=== PATIENT | male | born 1945 | race Caucasian/White ===

== ENCOUNTER 2020-07-20 00:23 | Inpatient (IN) | payer OTHER, MEDICARE, SELFPAY ==
[2020-07-20] VITALS (18 sets, daily range): BP systolic 105–155; BP diastolic 66–87; PULSE 70–120; RESP 14–22; TEMP 36.6–37.3; O2SAT 92–98; BMI 29.6
--- NOTE | 2020-07-20 00:28 | XRR_ITS ---
PROCEDURE INFORMATION: Exam: XR Chest, 1 View Exam date and time: 07/20/2020 1:05 AM Age: 75 years old Clinical indication: Fever and shortness of breath TECHNIQUE: Imaging protocol: XR of the chest Views: 1 view. COMPARISON: No relevant prior studies available. FINDINGS: Lungs: Minimal lingular scarring or atelectasis. No focally dense consolidation. Minor bronchiectasis right lower lung. Pleural space: Unremarkable. No pleural effusion. No pneumothorax. Heart/Mediastinum: Unremarkable. No cardiomegaly. Bones/joints: Unremarkable. XR/XR chest 1V portable [id number] IMPRESSION: Minor lingular scarring or atelectasis.
--- NOTE | 2020-07-20 00:29 | ECG_ITS ---
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 Measurements Intervals Broad Top Rate: 127 P: AL: -1 QRS: 270 QRSD: 134 T: 72 QT: 321 QTc: 467 Interpretive Statements Atrial fibrillation with rapid ventricular rate 127 bpm RIGHT AXIS DEVIATION [QRS AXIS > 100] RIGHT BUNDLE BRANCH BLOCK [120+ ms QRS DURATION, UPRIGHT V1, 40+ ms S IN I/aVL/V4/V5/V6] POSSIBLE ANTERIOR MYOCARDIAL INFARCTION , OF INDETERMINATE AGE [30 ms Q WAVE IN V3/V4, OR R < 0.2 mV IN V4] CRITICAL TEST RESULT No previous ECG available for comparison Electronically Signed On 07-20-2020 19:33:55 CDT by Brandi Bañuelos M.D. [id number]
--- NOTE | 2020-07-20 00:31 | W.ED.SOB ---
HPI - SOB/Dyspnea General: Chief Complaint: Shortness of Breath/Dyspnea Stated Complaint: SOB Time Seen by Provider: 07/20/20 00:24 Source: patient and EMS Mode of arrival: EMS Limitations: no limitations History of Present Illness: HPI Narrative: 75-year-old male who has a history of COPD that EMS brought in with shortness of breath along with fever. Patient said increasing shortness of breath throughout the night. He is requiring increased oxygen. His temperature is 99. Patient has some confusion here was unable to answer all my questions fully. He states he had an increased cough. Denies any vomiting or diarrhea. He has had some nausea. Denies any abdominal pain. Associated symptoms: Reports fever(s); Deny abdominal pain, chest pain, nausea or vomiting Review of Systems Const: Reports: fever(s) Eyes: Denies: blurry vision or eye discomfort ENMT: Denies: throat pain or dental pain Card: Denies: chest pain Resp: Reports: dyspnea and wheezing GI: Denies: abdominal pain, nausea, vomiting or diarrhea : Denies: dysuria Musc: Denies: neck pain or back pain Skin/Breast: Denies: rash Neuro: Denies: headache(s) Psych: Denies: depression Roberto/Lymph: Denies: easy bruising All/Imm: Denies: urticaria Physical Exam Const: COMMON NORMALS: no acute distress and alert; negative for patient oriented x3 GENERAL APPEARANCE: ill appearing ORIENTATION/CONSCIOUSNESS: Yes oriented to person; not oriented to place and not oriented to time HENMT: COMMON NORMALS: normocephalic and atraumatic HEAD & SCALP: normocephalic and atraumatic Eye: COMMON NORMALS: Equal, round and reactive pupils present and EOMs intact bilaterally PUPIL: Yes Equal, round and reactive pupils present Neck/C-Spine: COMMON NORMALS: full ROM and supple Chest: COMMONS NORMALS: normal inspection of the chest and normal palpation of entire chest wall Resp: COMMON NORMALS: No retractions and No use of accessory muscles EFFORT & INSPECTION: Yes tachypneic AUSCULTATION: wheezes Cardio: COMMON NORMALS: regular rhythm and No murmurs present (Cardio) RATE: tachycardic RHYTHM: regular rhythm GI: COMMON NORMALS: Normal to inspection, nondistended, normoactive bowel sounds present, Soft to palpation, non-tender and no masses PALPATION: Yes Soft to palpation Extremity: COMMON NORMALS: normal to inspection and full ROM Neuro: COMMON NORMALS: moves all extremities and no focal motor deficits; negative for patient oriented x3 SENSORIUM/ORIENTATION: Yes alert, Yes oriented to person, No oriented to place and No oriented to time Psych: COMMON NORMALS: Normal thought process present and cooperative; negative for mental status grossly normal THOUGHT PROCESS: Normal thought process present Skin: COMMON NORMALS: no rashes or lesions noted and no wounds GENERAL SKIN EXAM: no rashes or lesions noted Course Vital Signs: Vital signs: Vital Signs Temperature 99.2 F 07/20/20 01:22 Pulse Rate 103 H 07/20/20 03:01 Respiratory Rate 16 07/20/20 03:01 Blood Pressure 107/72 07/20/20 03:01 Pulse Oximetry 97 07/20/20 03:01 MDM - SOB/Dyspnea MDM Narrative: Medical decision making narrative: Mason presents here with cough and fever with x-ray with a possible pneumonia. Patient is also hyponatremic. Patient here has had some slight confusion may be due to his pneumonia or his hyponatremia. I spoke to hospitalist and will admit patient at this time. Lab Data: Labs: Lab Results 07/20/20 07/20/20 07/20/20 Range/Units 00:53 00:53 00:53 WBC (4.0-10.0) 10^3/ uL RBC (4.1-5.3) 10^6/u L Hgb (11.7-16.6) g/dL Hct (42.0-52.0) % MCV (80-94) fL MCH (28.0-34.0) pg MCHC (30.0-36.0) g/dL RDW (12.1-15.1) % Plt Count (130-400) 10^3/c mm MPV (7.4-10.4) fL Neut % (Auto) % Lymph % (Auto) % Cooper % (Auto) % Eos % (Auto) % Baso % (Auto) % Neut # (Auto) (1.8-7.7) 10^3/u L Lymph # (Auto) (0.8-4.8) 10^3/u L Cooper # (Auto) (0.2-0.9) 10^3/u L Eos # (Auto) (0.0-0.8) 10^3/u L Baso # (Auto) (0.0-0.1) 10^3/u L Nucleated RBC % (a uto) % Nucleated RBCs # /100WBC Fibrinogen 695 H (174-498) mg/dL Specimen Type Sample Site ABG pH (7.35-7.45) ABG pCO2 (35-45) mmHg ABG pO2 (80.0-100.0) mmH g ABG HCO3 (22-26) mmol/L ABG Base Excess (-2.0-2.0) mmol/ L Link Test Hematocrit (42-52) % O2 Delivery Device FiO2 % Reference Librarian ID Sodium 123 L (136-145) mmol/L Potassium 3.2 L (3.5-5.1) mmol/L Chloride 86 L (98-107) mmol/L Carbon Dioxide 23 (22-29) mmol/L Anion Gap 17.2 (5-19) BUN 17 (8-23) mg/dL Creatinine 0.7 (0.7-1.2) mg/dL GFR Calculation Not Reportable Glucose 119 H (65-115) mg/dL Calculated Osmolal ity 259 L (285-295) mOsm/k g Lactate (0.5-2.2) mmol/L Calcium 9.3 (8.5-10.5) mg/dL Ferritin 417 H (30-400) ng/mL Total Bilirubin 1.7 H (0.15-1.2) mg/dL AST 108 H (0-40) U/L ALT 315 H (0-41) U/L Alkaline Phosphata se 108 (40-130) IU/L C-Reactive Protein 122.1 H (0.0-4.9) mg/L NT-Pro-B Natriuret Pep 242 H (0-125) pg/mL Total Protein 6.7 (6.6-8.7) g/dL Albumin 3.4 L (3.5-5.2) g/dL Globulin 3.3 (1.3-4.6) g/dL SARS-CoV-2 Ag (Rap id) Negative (Negative) 07/20/20 07/20/20 07/20/20 Range/Units 00:53 00:53 00:55 WBC 11.9 H (4.0-10.0) 10^3/ uL RBC 4.02 L (4.1-5.3) 10^6/u L Hgb 13.4 (11.7-16.6) g/dL Hct 37.7 L (42.0-52.0) % MCV 93.8 (80-94) fL MCH 33.3 (28.0-34.0) pg MCHC 35.5 (30.0-36.0) g/dL RDW 13.7 (12.1-15.1) % Plt Count 136 (130-400) 10^3/c mm MPV 9.8 (7.4-10.4) fL Neut % (Auto) 93.4 % Lymph % (Auto) 2.3 % Cooper % (Auto) 3.3 % Eos % (Auto) 0.1 % Baso % (Auto) 0.2 % Neut # (Auto) 11.09 H (1.8-7.7) 10^3/u L Lymph # (Auto) 0.3 L (0.8-4.8) 10^3/u L Cooper # (Auto) 0.4 (0.2-0.9) 10^3/u L Eos # (Auto) 0.0 (0.0-0.8) 10^3/u L Baso # (Auto) 0.0 (0.0-0.1) 10^3/u L Nucleated RBC % (a uto) 0 % Nucleated RBCs # 0.0 /100WBC Fibrinogen (174-498) mg/dL Specimen Type Arterial Sample Site Brachial, right ABG pH 7.50 H (7.35-7.45) ABG pCO2 33.4 L (35-45) mmHg ABG pO2 59.5 L (80.0-100.0) mmH g ABG HCO3 26.0 (22-26) mmol/L ABG Base Excess 3.1 H (-2.0-2.0) mmol/ L Link Test N/a Hematocrit 41.3 L (42-52) % O2 Delivery Device Room air FiO2 21.0 % Reference Librarian ID Harkr Sodium (136-145) mmol/L Potassium (3.5-5.1) mmol/L Chloride (98-107) mmol/L Carbon Dioxide (22-29) mmol/L Anion Gap (5-19) BUN (8-23) mg/dL Creatinine (0.7-1.2) mg/dL GFR Calculation Glucose (65-115) mg/dL Calculated Osmolal ity (285-295) mOsm/k g Lactate 1.7 (0.5-2.2) mmol/L Calcium (8.5-10.5) mg/dL Ferritin (30-400) ng/mL Total Bilirubin (0.15-1.2) mg/dL AST (0-40) U/L ALT (0-41) U/L Alkaline Phosphata se (40-130) IU/L C-Reactive Protein (0.0-4.9) mg/L NT-Pro-B Natriuret Pep (0-125) pg/mL Total Protein (6.6-8.7) g/dL Albumin (3.5-5.2) g/dL Globulin (1.3-4.6) g/dL SARS-CoV-2 Ag (Rap id) (Negative) Imaging Data^: CT Head: Attestation: I personally reviewed and interpreted this imaging study as follows: Radiologist's impression: [address] [place] [address] CT Scan Report Signed Patient: Mason Castaneda Unit #: [id number] : 1945 Age/Sex: 75 / M ADM Date: 07/20/20 Loc: ER Room/Bed: Attending Dr: Ordering Provider/Ordering MD: Melanie Lopez MD Date of Service: 07/20/20 Procedure(s): CT head wo con* [id number] Accession Number(s): [id number] Report Number: [id number] PROCEDURE INFORMATION: Exam: CT Head Without Contrast Exam date and time: 07/20/2020 2:08 AM Age: 75 years old Clinical indication: Altered mental status/memory loss; Confusion or disorientation; Additional info: AMS TECHNIQUE: Imaging protocol: Computed tomography of the head without contrast. Radiation optimization: All CT scans at this facility use at least one of these dose optimization techniques: automated exposure control; mA and/or kV adjustment per patient size (includes targeted exams where dose is matched to clinical indication); or iterative reconstruction. COMPARISON: No relevant prior studies available. RADIATION DOSE METRICS: Total DLP (mGy-cm): 1326.63 FINDINGS: Brain: No acute intracranial hemorrhage or mass effect. There is decreased attenuation in the periventricular white matter, likely from microvascular disease. No definite acute infarct by CT. MRI could be more sensitive/specific for detection, as clinically directed. Ventricles: Ventricle size is normal for age. Bones/joints: No definite acute skull fracture. Paranasal sinuses: Mild mucosal thickening in the frontal sinuses. Minimal mucosal thickening in the ethmoid and maxillary sinuses. Mastoid air cells: No significant acute finding. Vasculature: Vascular calcifications in the internal carotid arteries. CT/CT head wo con* [id number] IMPRESSION: 1. No acute intracranial hemorrhage or mass effect. 2. No definite acute infarct by CT, see above. 3. Other findings discussed above. 4. Some limitations due to artifact from patient motion. CT Chest: Radiologist's impression: [place] [address] CT Scan Report Signed Patient: Mason Castaneda Unit #: [id number] : 1945 Age/Sex: 75 / M ADM Date: 07/20/20 Loc: ER Room/Bed: Attending Dr: Ordering Provider/Ordering MD: Melanie Lopez MD Date of Service: 07/20/20 Procedure(s): CT angio chest PE protcl [id number] Accession Number(s): [id number] Report Number: [id number] PROCEDURE INFORMATION: Exam: CT Angiography Chest With Contrast Exam date and time: 07/20/2020 2:08 AM Age: 75 years old Clinical indication: Shortness of breath; Additional info: SOB TECHNIQUE: Imaging protocol: Computed tomographic angiography of the chest with intravenous contrast. 3D rendering (Not supervised by radiologist): MIP and/or 3D reconstructed images were created by the technologist. Radiation optimization: All CT scans at this facility use at least one of these dose optimization techniques: automated exposure control; mA and/or kV adjustment per patient size (includes targeted exams where dose is matched to clinical indication); or iterative reconstruction. Contrast material: OMNI 350; Contrast volume: 81 ml; Contrast route: INTRAVENOUS (IV); COMPARISON: CR XR chest 1V portable [id number] 07/20/2020 12:45 AM RADIATION DOSE METRICS: Total DLP (mGy-cm): 646.43 FINDINGS: Pulmonary arteries: Normal. No pulmonary emboli. Aorta: Aortic calcifications are noted. No findings of aortic aneurysm or acute aortic abnormality. Lungs: Mild bilateral dependent infiltrates or scarring/atelectasis. Pleural space: Unremarkable. No pneumothorax. No pleural effusion. Heart: Coronary calcifications are noted. Lymph nodes: Unremarkable. No enlarged lymph nodes. Gallbladder and bile ducts: Cholelithiasis is noted. Gallbladder is otherwise unremarkable with normal wall thickness and volume. No pericholecystic reactive change. Bones/joints: No acute fracture. Soft tissues: Unremarkable. CT/CT angio chest PE protcl [id number] IMPRESSION: Mild bilateral dependent infiltrates or scarring/atelectasis. Cholelithiasis. No evident pulmonary embolic disease. Radiation Dose CTDIVOL = (mGy): DLP = 646.43 (mGy-cm) EKG Data^: EKG 1: Attestation: I personally reviewed and interpreted this EKG as follows: EKG Interpretation Date: 07/20/20 EKG interpretation time: 00:36 Interpretation: Right axis deviation with right bundle branch block no ST or T wave abnormalities QRS 134 QTc 396 sinus tach heart rate 127 Discharge Plan Discharge Clinical Impression: Hyponatremia Community acquired pneumonia Qualifiers: Laterality: unspecified laterality Qualified Code(s): J18.9 - Pneumonia, unspecified organism Condition: Stable Referrals: Luan Cohen [Primary Care Provider] - Coding Level of Care Code ED Washer Hand for g Fwd Exam Comprehensive
[2020-07-20] MEDS: acetaminophen 325 mg Tablet 650 MG PO (00:59)
[2020-07-20 01:00] LABS: ABG PCO2 33.4 mmHg (35-45); Arterial Blood Gas Hematocrit 41.3 % (42-52); Base Excess ABG 3.1 mmol/L (-2.0-2.0); Blood Gas Operator Identificat HARKR; Blood Gas Sample Site Brachial, right; Blood Gas Sample Type Arterial; Oxygen Device ROOM AIR; PO2 ABG 59.5 mmHg (80.0-100.0)
[2020-07-20 01:07] LABS: Basophils % 0.2 %; Eosinophils % 0.1 %; Hematocrit 37.7 % (42.0-52.0); Hemoglobin 13.4 g/dL (11.7-16.6); Lymphocytes # 0.3 10^3/uL (0.8-4.8); Lymphocytes % 2.3 %; Mean Corpuscular HGB Conc 35.5 g/dL (30.0-36.0); Mean Corpuscular Hemoglobin 33.3 pg (28.0-34.0); Mean Corpuscular Volume 93.8 fL (80-94); Mean Platelet Volume 9.8 fL (7.4-10.4); Monocytes # 0.4 10^3/uL (0.2-0.9); Monocytes % 3.3 %; Neutrophils # 11.09 10^3/uL (1.8-7.7); Neutrophils % 93.4 %; Nucleated Red Blood Cells % 0 %; Platelet Count 136 10^3/cmm (130-400); Red Blood Count 4.02 10^6/uL (4.1-5.3); Red Cell Distribution Width 13.7 % (12.1-15.1); White Blood Count 11.9 10^3/uL (4.0-10.0)
[2020-07-20 01:12] LABS: Fibrinogen 695 mg/dL (174-498)
[2020-07-20 01:20] LABS: Lactate (Lactic Acid level) 1.7 mmol/L (0.5-2.2)
[2020-07-20] MEDS: sodium chloride 0.9% 1,000 ML 999 ML IV (01:24)
[2020-07-20 01:29] LABS: Alanine Aminotransferase 315 U/L (0-41); Albumin Level 3.4 g/dL (3.5-5.2); Alkaline Phosphatase 108 IU/L (40-130); Anion Gap 17.2 (5-19); Aspartate Amino Transferase 108 U/L (0-40); Blood Urea Nitrogen 17 mg/dL (8-23); Calcium 9.3 mg/dL (8.5-10.5); Carbon Dioxide 23 mmol/L (22-29); Chloride 86 mmol/L (98-107); Globulin 3.3 g/dL (1.3-4.6); Glucose 119 mg/dL (65-115); NT Pro B Type Natriuretic Pept 242 pg/mL (0-125); Osmolality Calculated 259 mOsm/kg (285-295); Potassium 3.2 mmol/L (3.5-5.1); Sodium 123 mmol/L (136-145); Total Bilirubin 1.7 mg/dL (0.15-1.2); Total Protein 6.7 g/dL (6.6-8.7)
[2020-07-20 01:52] LABS: SARS Covid-2 Antigen Negative (Negative)
--- NOTE | 2020-07-20 01:57 | CTR_ITS ---
PROCEDURE INFORMATION: Exam: CT Head Without Contrast Exam date and time: 07/20/2020 2:08 AM Age: 75 years old Clinical indication: Altered mental status/memory loss; Confusion or disorientation; Additional info: AMS TECHNIQUE: Imaging protocol: Computed tomography of the head without contrast. Radiation optimization: All CT scans at this facility use at least one of these dose optimization techniques: automated exposure control; mA and/or kV adjustment per patient size (includes targeted exams where dose is matched to clinical indication); or iterative reconstruction. COMPARISON: No relevant prior studies available. RADIATION DOSE METRICS: Total DLP (mGy-cm): 1326.63 FINDINGS: Brain: No acute intracranial hemorrhage or mass effect. There is decreased attenuation in the periventricular white matter, likely from microvascular disease. No definite acute infarct by CT. MRI could be more sensitive/specific for detection, as clinically directed. Ventricles: Ventricle size is normal for age. Bones/joints: No definite acute skull fracture. Paranasal sinuses: Mild mucosal thickening in the frontal sinuses. Minimal mucosal thickening in the ethmoid and maxillary sinuses. Mastoid air cells: No significant acute finding. Vasculature: Vascular calcifications in the internal carotid arteries. CT/CT head wo con* [id number] IMPRESSION: 1. No acute intracranial hemorrhage or mass effect. 2. No definite acute infarct by CT, see above. 3. Other findings discussed above. 4. Some limitations due to artifact from patient motion. Radiation Dose CTDIVOL = (mGy): DLP = 1326.63 (mGy-cm)
--- NOTE | 2020-07-20 01:57 | CTR_ITS ---
PROCEDURE INFORMATION: Exam: CT Angiography Chest With Contrast Exam date and time: 07/20/2020 2:08 AM Age: 75 years old Clinical indication: Shortness of breath; Additional info: SOB TECHNIQUE: Imaging protocol: Computed tomographic angiography of the chest with intravenous contrast. 3D rendering (Not supervised by radiologist): MIP and/or 3D reconstructed images were created by the technologist. Radiation optimization: All CT scans at this facility use at least one of these dose optimization techniques: automated exposure control; mA and/or kV adjustment per patient size (includes targeted exams where dose is matched to clinical indication); or iterative reconstruction. Contrast material: OMNI 350; Contrast volume: 81 ml; Contrast route: INTRAVENOUS (IV); COMPARISON: CR XR chest 1V portable [id number] 07/20/2020 12:45 AM RADIATION DOSE METRICS: Total DLP (mGy-cm): 646.43 FINDINGS: Pulmonary arteries: Normal. No pulmonary emboli. Aorta: Aortic calcifications are noted. No findings of aortic aneurysm or acute aortic abnormality. Lungs: Mild bilateral dependent infiltrates or scarring/atelectasis. Pleural space: Unremarkable. No pneumothorax. No pleural effusion. Heart: Coronary calcifications are noted. Lymph nodes: Unremarkable. No enlarged lymph nodes. Gallbladder and bile ducts: Cholelithiasis is noted. Gallbladder is otherwise unremarkable with normal wall thickness and volume. No pericholecystic reactive change. Bones/joints: No acute fracture. Soft tissues: Unremarkable. CT/CT angio chest PE protcl [id number] IMPRESSION: Mild bilateral dependent infiltrates or scarring/atelectasis. Cholelithiasis. No evident pulmonary embolic disease. Radiation Dose CTDIVOL = (mGy): DLP = 646.43 (mGy-cm)
[2020-07-20] MEDS: iohexol 350 mg/mL 100 mL Btl IV (02:44)
[2020-07-20 03:22] LABS: C Reactive Protein 122.1 mg/L (0.0-4.9); Ferritin 417 ng/mL (30-400)
--- NOTE | 2020-07-20 03:55 | P.HP_ITS ---
Providers/Chief Complaint Primary Care Provider: Luan Cohen Chief Complaint: SOB History of Present Illness Mason Castaneda is a 75 year old male Medications/Allergies Allergies Allergy/AdvReac Type Severity Reaction Status Date / Time No Known Allergies Allergy Verified 07/20/20 00:31 Vitals/I&O/Wt Last Vital Signs Temp 99.2 F 07/20/20 01:22 Pulse 103 H 07/20/20 03:01 Resp 16 07/20/20 03:01 BP 107/72 07/20/20 03:01 Pulse Ox 97 07/20/20 03:01 Weight last 48 hrs Weight 88.451 kg Data : 07/20/20 00:53 07/20/20 00:53 Micro: Microbiology 07/20/20 00:55 Blood Culture - Preliminary Blood SPECIMEN COLLECTED 07/20/20 00:53 Blood Culture - Preliminary Blood SPECIMEN COLLECTED Coding Level of Care Code 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
[2020-07-20] MEDS: azithromycin 500 MG in sodium chloride 0.9% 250 ML 250 MG IV (04:19)
[2020-07-20] MEDS: cefTRIAXone 1,000 MG in sodium chloride 0.9% (plus) 50 ML 100 MG IV (04:19)
[2020-07-20 05:05] LABS: Bilirubin Urine Neg (Negative); Blood Urine 2+ (Negative); Glucose Urine UA Norm (Normal); Ketones Urine 2+ (Negative); Nitrate Urine Negative (Negative); Protein Urine Neg (Negative); Specific Gravity, Urine 1.005 (1.005-1.030); Urine Appearance Clear (CLEAR); Urine Color Yellow (Yellow); pH Urine 5 (5-7)
[2020-07-20 05:06] LABS: Add Urine Microscopic? YES; Bacteria Urine 1+ /hpf; Leukocyte Esterase Urine Negative (Negative); Mucus Urine 1+ /hpf; RBC Urine 0-4 /hpf (0-2); Squamous Epithelial Cell Urine 0-4 /hpf (0-5); Urobilinogen Urine 4 mg/dL (Negative); WBC Urine 0-4 /hpf (0-5)
--- NOTE | 2020-07-20 05:18 | PM.HP ---
Providers/Chief Complaint Admitting Physician: Shilpi Nixon MD Primary Care Provider: Luan Cohen Chief Complaint: SOB History of Present Illness Mason Castaneda is a 75 year old male who carries history of sleep apnea, oxygen dependent COPD uses 2 L of oxygen at home, nicotine dependence came in with chief complaint of fever and shortness of breath. is also at the bedside who is endorsing that on Friday night patient started complaining of lower back pain which was radiating towards his abdomen and right upper quadrant area, he did not complain of any shortness of breath or chest pain on Friday. On subsequent days he was really weak lethargic and seemed confused on Friday he started experiencing pursed lip breathing with audible wheezing his temperature was 101 at home. His brought him to the hospital for further evaluation. Patient denies nausea, vomiting, dysuria, diarrhea chest pain. Patient is endorsing fever associated with chills abdominal pain mostly in right upper quadrant area. He is denying cough, sputum production. Diagnosis in the ER revealed tachypnea, tachycardia, leukocytosis he was treated with ceftriaxone and azithromycin for possible pneumonia, CT scan did not show any pneumonia or PE however abnormal transaminases noticed on chemistry I have requested gallbladder ultrasound and added metronidazole to ceftriaxone regimen Clinically he looks fluid overloaded mostly with right-sided heart failure features is stating that he has seen a caster investment casting for chronic hyponatremia, he takes hydrochlorothiazide 12.5 mg every day for hypertension, he does not use Lasix, no history of [place], stroke, coronary disease or heart failure. His emerging solutions executive at [facility] recommended to titrate up his oxygen from 2 L to 3 L for his COPD. Review of Systems Const: Reports: fever(s), chills, body aches, change in appetite, fatigue and malaise Eyes: Denies: change in vision ENMT: Denies: throat pain Card: Reports: swelling of feet/ankles, dyspnea on exertion and acrocyanosis; Denies: chest pain Resp: Reports: dyspnea; Denies: productive cough or non-productive cough GI: Reports: abdominal pain and nausea; Denies: vomiting, diarrhea or constipation : Denies: flank pain Musc: Reports: muscle cramps Skin/Breast: Reports: lesions Neuro: Reports: confusion Psych: Denies: anxiety Endo: Denies: polyuria Roberto/Lymph: Denies: easy bruising All/Imm: Denies: urticaria Medications/Allergies Allergies Allergy/AdvReac Type Severity Reaction Status Date / Time No Known Allergies Allergy Verified 07/20/20 00:31 PFSH Acute PFSH: Medical History BPH (benign prostatic hyperplasia) COPD (chronic obstructive pulmonary disease) Hypertension Hypothyroidism (acquired) Nicotine dependence Sleep apnea Supplemental oxygen dependent Surgical History H/O thyroidectomy History of tonsillectomy Family History Grandmother Cancer Mother Cancer Breast cancer Social History Smoking and tobacco status: current every day smoker cigarettes Years cigarettes smoked: 40 [ Other cigarette details: 1 pack/day ] Alcohol intake: never Substance/Drug Use: never Household members: spouse Housing: House Marital status: Vitals/I&O/Wt Last Vital Signs Temp 99.2 F 07/20/20 01:22 Pulse 94 07/20/20 04:30 Resp 19 H 07/20/20 04:30 BP 115/82 07/20/20 04:30 Pulse Ox 95 07/20/20 04:30 Weight last 48 hrs Weight 88.451 kg Physical Exam Narrative: EXAM NARRATIVE: Pleasant elderly male lying comfortably in his bed Features of right-sided heart failure with positive JVD, lower extremity edema and hepatic congestion Distended abdomen without any tenderness or rigidity, bowel sound present Diminished breath sounds bilaterally without active wheezing Patient seems very lethargic and tired Able to understand my verbal commands No active respiratory distress EOMI, PERRLA No neurological deficit lower extremity 2+ pitting edema bilaterally Data : 07/20/20 00:53 07/20/20 00:53 Micro: Microbiology 07/20/20 00:55 Blood Culture - Preliminary Blood SPECIMEN COLLECTED 07/20/20 00:53 Blood Culture - Preliminary Blood SPECIMEN COLLECTED A&P Assessment and plan (1) Sepsis: Status: Acute (2) Cholelithiasis: Status: Acute (3) Right-sided heart failure: Status: Acute (4) Hyponatremia: Status: Acute (5) Hypokalemia: Status: Acute (6) Acute hypoactive delirium due to another medical condition: Status: Acute Additional A&P Information Sepsis Patient was treated for community-acquired pneumonia in the ER with ceftriaxone and azithromycin, CTA chest ruled out PE I do not see any infiltrates I will discontinue azithromycin Considering abnormal transaminases and cholelithiasis my suspicion is high for gallbladder etiology, will add metronidazole to ceftriaxone regimen However similar presentation can be seen with Legionella pneumonia, will obtain urine antigen DuoNeb every 4 as needed Judicious use of fluids because of fluid overloaded state COVID antigen negative Right-sided heart failure Positive JVD bilateral lower extremity edema 2+ Hyponatremia seems to be due to hypervolemia with underlying hypothyroidism Check serum and urine osmolarity TSH, uric acid I would avoid giving more fluids considering fluid overload state and add Lasix No previous history of CHF, will obtain echo, suspicion for COPD induced right-sided heart failure Hyponatremia secondary to hypervolemia/right-sided heart failure Patient has been taking hydrochlorothiazide which would explain hyponatremia along hypokalemia Received 1 L of normal saline in the ER, would not use more fluids at this point Sodium level check in 4 hours Hypoactive delirium due to sepsis with underlying chronic hyponatremia Serial sodium monitoring Patient currently awake alert oriented x3 GCS 15 without neurological deficit We will follow-up on TSH and B12 level Full code DVT prophylaxis Lovenox Cardiac diet Attestations Medical Necessity Statement*: Anticipating stay in the hospital to cross more than 2 midnights for sepsis and right-sided heart failure management Time Spent in Patient Care: (>than 50% of time spent in counselling and/or direct pt care on unit). 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
[2020-07-20 06:44] LABS: Thyroid Stimulating Hormone 1.73 uIU/mL (0.27-4.20)
--- NOTE | 2020-07-20 06:45 | USCV_ITS ---
Mason Castaneda Age: 75 Gender: M : 1945 Exam Date: 07/20/2020 07:16 Ordering Phys: Shilpi Nixon MD Technologist: Usman Gilbert Exam Location: [facility] – [place] Indication: RT SIDE HEART BP: 136 / 85 HR: 56 Rhythm: Sinus Technical Quality: Poor secondary to COPD MEASUREMENTS (Male / Female) Normal Values 2D ECHO LV Ejection Fraction MOD 2C 56.7 % LV Ejection Fraction 2C AL 56.0 % LA Diameter 4.0 cm LA Width 4.0 cm LA Height 4.0 cm RA Width 4.1 cm RA Height 4.0 cm M-MODE LV Diastolic Diameter MM 4.9 cm 4.2 - 5.9 / 3.9 - 5.3 cm LV Systolic Diameter MM 2.6 cm LV Ejection Fraction MM Teich 77.6 % IVS Diastolic Thickness MM 0.9 cm 0.6 - 1.0 / 0.6 - 0.9 cm IVS Systolic Thickness MM 2.3 cm LVPW Diastolic Thickness MM 1.4 cm 0.6 - 1.0 / 0.6 - 0.9 cm LVPW Systolic Thickness MM 2.1 cm RV Diastolic Diameter MM 2.0 cm Aortic Annulus Diameter 3.9 cm LA Ao Ratio MM 1.0 MV E Point Septal Separation 1.2 cm DOPPLER AV Peak Velocity 100.0 cm/s LVOT Peak Velocity 85.0 cm/s MV Area PHT 5.0 cm squared Mitral E to A Ratio 0.8 MV E' Velocity 10.0 cm/s Mitral E to MV E' Ratio 9.4 Mitral E to LV E' Lateral Ratio 9.3 Mitral E to LV E' Septal Ratio 9.5 TR Peak Velocity 88.0 cm/s TR Peak Gradient 3.1 mmHg TV Peak E Velocity 71.0 cm/s Right Atrial Pressure 3.0 mmHg Pulmonary Artery Systolic Pressu 6.1 mmHg FINDINGS Left Ventricle Normal left ventricular size, systolic function with no diagnostic regional wall motion abnormalities. Left ventricular ejection fraction is estimated at 55-60%. Normal diastolic function. Right Ventricle Normal right ventricular size and systolic function. Right ventricular systolic pressure 6.1 mmHg. Right Atrium Normal right atrial size. Left Atrium Normal left atrial size. Mitral Valve Mitral valve not well visualized. No significant mitral valve regurgitation. Aortic Valve Aortic valve not well visualized. Tricuspid Valve Structurally normal tricuspid valve. Pulmonic Valve Pulmonic valve not well visualized. Pericardium No pericardial effusion. Echo free space anterior to the right ventricle likely represents a fat pad. Aorta Aorta not well visualized. CONCLUSIONS 1. This is a technically difficult and limited study. 2. Normal left ventricular size, systolic function with no diagnostic regional wall motion abnormalities. Left ventricular ejection fraction is estimated at 55-60%. Normal diastolic function. 3. Normal pulmonary artery pressure. 4. No prior similar studies to compare. Viola Matias MD (Electronically Signed) Final Date: 20 July 2020 19:47 S
[2020-07-20] MEDS: acetaminophen 500 mg Tablet PO ×3 (07:09→18:26)
[2020-07-20] MEDS: potassium chloride ER 10 mEq Tablet 40 MEQ PO ×2 (07:09→09:38)
[2020-07-20] MEDS: enoxaparin 40 mg/0.4 mL Syringe SUBCUT (07:10)
[2020-07-20 09:01] LABS: Sodium 121 mmol/L (136-145)
[2020-07-20 09:13] LABS: Potassium, Radom Urine 33 mmol/L; Urine Creatinine 84 mg/dL (39-259); Urine Random Chloride 31 mmol/L
--- NOTE | 2020-07-20 09:18 | US_ITS ---
WS: [id number] RIGHT UPPER QUADRANT ULTRASOUND HISTORY: elevated liver enzymes COMPARISON: None available. Liver: 18.5 cm in length. Mildly enlarged liver with mild to moderate hepatic steatosis. Attenuation throughout the liver with no mass identified. No bile duct dilatation. Gallbladder: Slightly contracted gallbladder with a stone at the neck. There is mild diffuse gallblad best wall thickening with no edema. CBD: 0.9 cm, common bile duct is slightly dilated. Pancreas: Normal size and echogenicity. Right kidney: 10.1 cm in length. Normal size and echogenicity. No hydronephrosis or mass. Aorta and IVC: Unremarkable abdominal aorta and IVC. No ascites. US/US liver [id number] IMPRESSION: 1. Cholelithiasis without evidence for acute cholecystitis. 2. Dilated common bile duct. Cannot exclude distal obstructing stone or pancre atic head mass. 3. Recommend further evaluation of the common bile duct. MRCP and/or CT abdome n and pelvis with IV contrast.
[2020-07-20 09:23] LABS: Urine Random Sodium 17 mmol/L
[2020-07-20] MEDS: nicotine 21 mg Patch 1 PATCH TRANSDERMA (09:38)
[2020-07-20] MEDS: azithromycin 250 mg Tablet 500 MG PO (09:38)
[2020-07-20] MEDS: ipratropium-albuterol 3 mL Neb INHALATION (09:55)
--- NOTE | 2020-07-20 10:52 | P.PN_ITS ---
Subjective Subjective: Interval history: Admitted last night. H&P and labs noted. Patient states he started having difficulty in breathing after he had back pain radiating to right side of his abdomen on Friday which is sharp in nature. He started having difficulty in breathing from Friday morning which has been getting worse and causing him to be having pursed lip breathing on exertion for last 2 days with fever going up to 102 Fahrenheit for last 3 days on and off with myalgias. Examination patient states he is feeling little better. He is asking for a nicotine patch. Denies of any nausea, vomiting, headache. Complaining of mild right upper quadrant pain. Vitals/I&O/Wt Last Vital Signs Temp 98.3 F 07/20/20 09:00 Pulse 72 07/20/20 10:00 Resp 20 H 07/20/20 09:57 BP 135/82 07/20/20 09:00 Pulse Ox 97 07/20/20 09:57 Weight last 48 hrs Weight 88.451 kg Physical Exam Narrative: EXAM NARRATIVE: Pleasant elderly male lying comfortably in his bed Mildly elevated JVD. Abdomen: Distended, morbid obese, mild tenderness in right upper quadrant on deep palpation , bowel sound present Diminished breath sounds bilaterally, bilateral expiratory wheeze present Cardio: S1-S2 regular, pansystolic murmur at fifth para intercostal space. Able to understand my verbal commands No active respiratory distress EOMI, PERRLA No neurological deficit lower extremity 2+ pitting edema bilaterally Data : 07/20/20 00:53 07/20/20 12:28 Micro: Microbiology 07/20/20 04:12 Bacterial Antigens - Final Urine,Voided 07/20/20 04:12 Legionella Urinary Antigen - Final Urethra 07/20/20 00:55 Blood Culture - Preliminary Blood SPECIMEN COLLECTED 07/20/20 00:53 Blood Culture - Preliminary Blood SPECIMEN COLLECTED A&P Assessment and plan (1) Chronic hypoxemic respiratory failure: Status: Acute (2) COPD (chronic obstructive pulmonary disease): Status: Acute (3) Shortness of breath: Status: Acute (4) Sepsis: Status: Acute (5) Hyponatremia: Status: Acute (6) Weakness: Status: Acute (7) Cholelithiasis: Status: Acute (8) Hypokalemia: Status: Acute (9) Acute hypoactive delirium due to another medical condition: Status: Acute Additional A&P Information 72-year-old gentleman past medical history of COPD, chronic hypoxic respiratory failure on 2 to 3 L of oxygen supplementation at baseline, HTN, post thyroidectomy, presented with difficulty in breathing, N/V, fever for 2 days. Acute on chronic hypoxic respiratory failure: Most likely COPD exacerbation. We will start patient on budesonide, DuoNeb's. Methylprednisone 40 mg IV every 12 hourly. We will wean off gradually. Oxygen supplementation keeping saturation over 90%. Pneumonia unlikely as patient does not have any consolidation on CTA PE done last night. PE was also ruled out. Rapid COVID-19 was negative. Patient does give history of difficulty in breathing along with fever for last 3 days with chills. Also with history of myalgias. Fibrinogen done on admission yesterday, CRP were both elevated. Will do COVID-19 PCR. Isolation precaution. Cannot rule out atypical pneumonia. Will check bacterial antigen, urine Legionella. For now start patient on azithromycin 500 mg daily. Sepsis: Diagnosed on admission. Pulmonary source unlikely given negative CT chest. Patient does have elevated liver enzymes. Mild tenderness on right upper quadrant as well. We will start with liver ultrasound, hepatitis panel. If liver ultrasound abnormal will do CT abdomen pelvis with contrast versus MRCP. For now we will switch ceftriaxone and metronidazole to Zosyn. Weakness secondary to hyponatremia: Hyponatremia: TSH within normal limits, glucose normal as well. We will check lipid panel, HbA1c. Echocardiogram done. Results awaited. We will check urine lites, urine creatinine, urine osmolality. Start patient on IV Lasix 40 mg daily. Fluid restriction up to 1500 cc. We will monitor sodium levels q. 12 hourly. Strict input and output charting, daily weights. Hypoactive delirium due to sepsis with underlying chronic hyponatremia Serial sodium monitoring Patient currently awake alert oriented x3 GCS 15 without neurological deficit Some suspicion of right-sided heart failure on admission. Patient does not carry any diagnosis of same. Echocardiogram has been done will follow up the results. Full code DVT prophylaxis Lovenox Cardiac diet Attestations Medical Necessity Statement*: Hyponatremia, acute on chronic respiratory failure, COPD exacerbation Time Spent in Patient Care: Greater than 35 minutes (>than 50% of time spent in counselling and/or direct pt care on unit) . 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
[2020-07-20] MEDS: FUROsemide 10 mg/mL SDV 4mL 40 MG IVP (12:48)
[2020-07-20] MEDS: piperacillin-tazobactam 3.375 GM in sodium chloride 0.9% (plus) 50 ML IV ×2 (13:19→18:25)
[2020-07-20 13:20] LABS: Sodium 123 mmol/L (136-145)
[2020-07-20 14:12] LABS: Hepatitis A Antibody IgM Non-Reactive (Nonreactive); Hepatitis B Core AB, Total Non-Reactive (Nonreactive); Hepatitis B Surface AB 3.5 (0-8.5); Hepatitis B Surface Antigen Non-Reactive (Nonreactive); Hepatitis C Virus Antibody Non-Reactive (Nonreactive)
[2020-07-20] MEDS: sodium chloride 1 gm Tablet PO (18:25)
[2020-07-20 19:40] LABS: Sodium 126 mmol/L (136-145)
[2020-07-21] VITALS (9 sets, daily range): BP systolic 144–166; BP diastolic 75–96; PULSE 80–110; RESP 14–178; TEMP 36.6–37.6; O2SAT 92–98; BMI 29.6
[2020-07-21] MEDS: piperacillin-tazobactam 3.375 GM in sodium chloride 0.9% (plus) 50 ML IV ×2 (02:08→11:59)
[2020-07-21 06:02] LABS: Basophils % 0.1 %; Hematocrit 36.7 % (42.0-52.0); Hemoglobin 12.9 g/dL (11.7-16.6); Lymphocytes # 0.6 10^3/uL (0.8-4.8); Lymphocytes % 4.6 %; Mean Corpuscular HGB Conc 35.1 g/dL (30.0-36.0); Mean Corpuscular Hemoglobin 33.3 pg (28.0-34.0); Mean Corpuscular Volume 94.8 fL (80-94); Mean Platelet Volume 9.8 fL (7.4-10.4); Monocytes # 0.5 10^3/uL (0.2-0.9); Monocytes % 3.9 %; Neutrophils # 12.18 10^3/uL (1.8-7.7); Neutrophils % 90.4 %; Nucleated Red Blood Cells % 0 %; Platelet Count 142 10^3/cmm (130-400); Red Blood Count 3.87 10^6/uL (4.1-5.3); Red Cell Distribution Width 14.1 % (12.1-15.1); White Blood Count 13.5 10^3/uL (4.0-10.0)
[2020-07-21] MEDS: enoxaparin 40 mg/0.4 mL Syringe SUBCUT (06:18)
[2020-07-21 06:29] LABS: Alanine Aminotransferase 216 U/L (0-41); Albumin Level 3.5 g/dL (3.5-5.2); Alkaline Phosphatase 99 IU/L (40-130); Anion Gap 14.1 (5-19); Aspartate Amino Transferase 65 U/L (0-40); Blood Urea Nitrogen 21 mg/dL (8-23); Calcium 9.3 mg/dL (8.5-10.5); Carbon Dioxide 27 mmol/L (22-29); Chloride 91 mmol/L (98-107); Globulin 3.1 g/dL (1.3-4.6); Glucose 125 mg/dL (65-115); Osmolality Calculated 270 mOsm/kg (285-295); Potassium 4.1 mmol/L (3.5-5.1); Sodium 128 mmol/L (136-145); Total Bilirubin 0.7 mg/dL (0.15-1.2); Total Protein 6.6 g/dL (6.6-8.7)
[2020-07-21 06:36] LABS: Estmated Average Glucose 111; Hemoglobin A1C 5.5 % (4.0-6.0)
[2020-07-21 06:40] LABS: Chol HDL Ratio 3.87 mg/dL (1.0-5.00); Cholesterol 182 mg/dL (0-200); HDL Cholesterol 47 mg/dL (60-100); LDL Cholesterol Calculated 117 mg/dL (50-129); Triglycerides 89 mg/dL (0-150); VLDL Cholestrol Calculation 18 mg/dL (0-30)
--- NOTE | 2020-07-21 09:01 | P.PN_ITS ---
Subjective Subjective: Interval history: Overnight. Patient has remained hemodynamically stable. He has remained afebrile in last 24 hours. On examination he saturating more than 90% on 3 L nasal cannula. States he is feeling a lot better. Cough is better. He denies of any nausea, vomiting, headache. Vitals/I&O/Wt Last Vital Signs Temp 98.1 F 07/21/20 08:00 Pulse 87 07/21/20 08:00 Resp 18 07/21/20 08:00 BP 144/75 07/21/20 08:00 Pulse Ox 92 07/21/20 08:00 07/20/20 07/21/20 07/21/20 22:59 06:59 14:59 Intake Total 100 / 100 Output Total 600 / 600 200 / 800 Balance -500 / -500 -200 / -700 Weight last 48 hrs Weight 88.451 kg Weight 88.451 kg Weight 88.451 kg Physical Exam Narrative: EXAM NARRATIVE: Pleasant elderly male lying comfortably in his bed Mildly elevated JVD. Abdomen: Distended, morbid obese, mild tenderness in right upper quadrant on deep palpation , bowel sound present Diminished breath sounds bilaterally, bilateral expiratory wheeze present Cardio: S1-S2 regular, pansystolic murmur at fifth para intercostal space. Able to understand my verbal commands No active respiratory distress EOMI, PERRLA No neurological deficit lower extremity 2+ pitting edema bilaterally Data : 07/21/20 05:03 07/21/20 10:05 Micro: Microbiology 07/20/20 00:55 Blood Culture - Preliminary Blood NEGATIVE TO DATE 07/20/20 00:53 Blood Culture - Preliminary Blood NEGATIVE TO DATE 07/20/20 04:12 Bacterial Antigens - Final Urine,Voided 07/20/20 04:12 Legionella Urinary Antigen - Final Urethra A&P Assessment and plan (1) Chronic hypoxemic respiratory failure: Status: Acute (2) COPD (chronic obstructive pulmonary disease): Status: Acute (3) Shortness of breath: Status: Acute (4) Sepsis: Status: Acute (5) Hyponatremia: Status: Acute (6) Weakness: Status: Acute (7) Cholelithiasis: Status: Acute (8) Hypokalemia: Status: Acute (9) Acute hypoactive delirium due to another medical condition: Status: Acute Additional A&P Information 72-year-old gentleman past medical history of COPD, chronic hypoxic respiratory failure on 2 to 3 L of oxygen supplementation at baseline, HTN, post thyroidectomy, presented with difficulty in breathing, N/V, fever for 2 days. Acute on chronic hypoxic respiratory failure: Most likely COPD exacerbation. Continue with Advair and Spiriva. We will wean him in hospital to 40 mg daily. Oxygen supplementation keeping saturation 90%. Physical therapy eval and treat. Pneumonia unlikely as patient does not have any consolidation on CTA PE done last night. PE was also ruled out. Rapid COVID-19 was negative. Patient does give history of difficulty in breathing along with fever for last 3 days with chills. Also with history of myalgias. Fibrinogen done on admission yesterday, CRP were both elevated. COVID-19 PCR still awaited. Isolation precaution. Cannot rule out atypical pneumonia. Will check bacterial antigen, urine Legionella. For now start patient on azithromycin 500 mg daily. Sepsis: Diagnosed on admission. Pulmonary source unlikely given negative CT chest. Patient does have elevated liver enzymes. Mild tenderness on right upper quadrant as well. Liver ultrasound questionable for possible common bile duct obstruction though rules out cholecystitis. Will do CT abdomen pelvis with contrast. As patient has remained afebrile if CT abdomen pelvis without any acute pathology we will stop Zosyn and monitor for next 24 hours. Weakness secondary to hyponatremia: Hyponatremia: Most likely because of hydrochlorothiazide as an outpatient. TSH, HbA1c, lipid panel within normal limits. Echocardiogram results appreciated. Shows EF of 55 to 60% with no diastolic dysfunction, normal pulmonary artery pressures. Urine lites results appreciated. Continue with fluid restriction up to 1500.cc. Salt tabs 1 g p.o. twice daily. Hold off on for any further Lasix. We will monitor sodium levels q. 12 hourly. Strict input and output charting, daily weights. Hypoactive delirium due to sepsis with underlying chronic hyponatremia: Resolved. Serial sodium monitoring Patient currently awake alert oriented x3 GCS 15 without neurological deficit Full code DVT prophylaxis Lovenox Cardiac diet Attestations Medical Necessity Statement*: Acute on chronic respiratory failure, COPD exacerbation, hyponatremia Time Spent in Patient Care: Greater than 35 minutes (>than 50% of time spent in counselling and/or direct pt care on unit) . 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
[2020-07-21] MEDS: nicotine 21 mg Patch 1 PATCH TRANSDERMA (09:17)
[2020-07-21] MEDS: acetaminophen 500 mg Tablet PO ×3 (09:17→20:49)
[2020-07-21] MEDS: sodium chloride 1 gm Tablet PO ×2 (09:18→17:58)
[2020-07-21] MEDS: azithromycin 250 mg Tablet 500 MG PO (09:18)
[2020-07-21] MEDS: potassium chloride ER 10 mEq Tablet 40 MEQ PO (09:18)
[2020-07-21 10:43] LABS: Sodium 129 mmol/L (136-145)
[2020-07-21] MEDS: iohexol 300 mg/mL 100 mL Btl IV (11:27)
--- NOTE | 2020-07-21 11:58 | CT_ITS ---
WS: [id number] CT ABDOMEN AND PELVIS WITH CONTRAST HISTORY: exclude distal obstructing stone or pancreatic head mass. TECHNIQUE: Imaging performed of the abdomen and pelvis with IV contrast. Single phase imaging of the abdomen. Coronal and sagittal reformats are submitted. All CT scans at [facility] use at least one of these dose optimization techniques: automated exposure control; mA and/or kV adjustment per patient size (includes targeted exams where dose is matched to clinical indication); or iterativ e reconstruction. IV CONTRAST: Omnipaque 300; 95 mL IV. Oral contrast: Yes. DLP: 1404.75 mGy.cm COMPARISON: 07/20/2020 liver ultrasound. Lower thorax: Linear atelectasis in the lingula and RIGHT lung base. Heart is normal size. No hiatal hernia. Liver/biliary system: There are a few scattered low-attenuation areas in the liver which are probably cysts but too small to characterize. No bile duct dilatation. Common bile duct is normal caliber by CT. Maximum diameter 5.6 mm. Gallbladder: Normally distended gallbladder with stones. No pericholecystic fluid. Pancreas: No pancreatic head mass. Spleen: Normal. Adrenal glands: Normal. Right kidney: Normal. Left kidney: Normal. Aorta: Mild atherosclerosis with no aneurysm. Lymphadenopathy: None. Free fluid: None. GI tract: Normal appendix. No GI tract obstruction. No wall thickening or colitis. Abdominal wall: Fat-containing umbilical hernia. Several foci of air in the RIGHT abdominal wall from injection sites. Pelvis: Central prostate gland calcifications. Urinary bladder is negative. Bones: Degenerative disc disease. No osteoblastic or osteolytic bone disease. CT/CT abdomen pelvis w con* [id number] IMPRESSION: 1. Normal common bile duct. There is no stone in the distal common bile duct o r pancreas head mass. 2. Cholelithiasis without acute cholecystitis. 3. Atherosclerosis aorta with no aneurysm.
[2020-07-21 15:36] LABS: Osmolality Serum 262 mOsm/kg (278-305)
[2020-07-21 16:06] LABS: Osmolality Urine 580 mOsm/kg (50-1200)
[2020-07-21 17:24] LABS: Anion Gap 13.6 (5-19); Blood Urea Nitrogen 20 mg/dL (8-23); Calcium 9.6 mg/dL (8.5-10.5); Carbon Dioxide 27 mmol/L (22-29); Chloride 92 mmol/L (98-107); Glucose 116 mg/dL (65-115); Osmolality Calculated 270 mOsm/kg (285-295); Potassium 4.6 mmol/L (3.5-5.1); Sodium 128 mmol/L (136-145)
[2020-07-22] VITALS (12 sets, daily range): BP systolic 137–163; BP diastolic 79–96; PULSE 56–100; RESP 14–18; TEMP 36.6–37.1; O2SAT 92–100
[2020-07-22] MEDS: acetaminophen 500 mg Tablet PO ×5 (00:57→22:14)
[2020-07-22] MEDS: ipratropium-albuterol 3 mL Neb INHALATION ×2 (03:20→21:04)
--- NOTE | 2020-07-22 03:38 | PC.NURSE ---
Spoke with patient about giving family members updates on his medical status. Patient stated that he is okay with staff speaking to all of his children and about his medical condition and status during his hospital stay. This nurse will get patient to fill out a authorization form for patient medical chart.
[2020-07-22 05:53] LABS: Basophils % 0.3 %; Eosinophils % 0.1 %; Hematocrit 36.7 % (42.0-52.0); Hemoglobin 12.7 g/dL (11.7-16.6); Lymphocytes # 1.7 10^3/uL (0.8-4.8); Lymphocytes % 14.4 %; Mean Corpuscular HGB Conc 34.6 g/dL (30.0-36.0); Mean Corpuscular Hemoglobin 33.2 pg (28.0-34.0); Mean Corpuscular Volume 96.1 fL (80-94); Mean Platelet Volume 9.7 fL (7.4-10.4); Monocytes # 1.5 10^3/uL (0.2-0.9); Monocytes % 12.2 %; Neutrophils # 8.42 10^3/uL (1.8-7.7); Neutrophils % 70.5 %; Nucleated Red Blood Cells % 0 %; Platelet Count 141 10^3/cmm (130-400); Red Blood Count 3.82 10^6/uL (4.1-5.3); Red Cell Distribution Width 14.4 % (12.1-15.1); White Blood Count 11.9 10^3/uL (4.0-10.0)
[2020-07-22] MEDS: enoxaparin 40 mg/0.4 mL Syringe SUBCUT (06:19)
[2020-07-22 06:20] LABS: Alanine Aminotransferase 173 U/L (0-41); Albumin Level 3.4 g/dL (3.5-5.2); Alkaline Phosphatase 87 IU/L (40-130); Anion Gap 12.3 (5-19); Aspartate Amino Transferase 52 U/L (0-40); Blood Urea Nitrogen 23 mg/dL (8-23); Calcium 8.7 mg/dL (8.5-10.5); Carbon Dioxide 27 mmol/L (22-29); Chloride 94 mmol/L (98-107); Globulin 2.9 g/dL (1.3-4.6); Glucose 97 mg/dL (65-115); Osmolality Calculated 272 mOsm/kg (285-295); Potassium 4.3 mmol/L (3.5-5.1); Sodium 129 mmol/L (136-145); Total Bilirubin 0.6 mg/dL (0.15-1.2); Total Protein 6.3 g/dL (6.6-8.7)
--- NOTE | 2020-07-22 08:10 | PM.PN ---
Subjective Subjective: Interval history: No acute events overnight. On examination is staying comfortably in bed. Patient had some concerns regarding salt tablets. States he does not like the taste of the same. Discussed importance of salt for now and he is agreed to take the medication. States her breathing is little better now. Denies of any nausea, vomiting. COVID-19 results still awaited. Vitals and labs noted. Vitals/I&O/Wt Last Vital Signs Temp 97.8 F 07/22/20 07:26 Pulse 71 07/22/20 07:26 Resp 18 07/22/20 07:26 BP 163/95 07/22/20 07:26 Pulse Ox 100 07/22/20 07:26 07/21/20 07/22/20 07/22/20 22:59 06:59 14:59 Intake Total 360 / 410 Output Total 800 / 970 700 / 1670 Balance -800 / -920 -340 / -1260 Weight last 48 hrs Weight 98.033 kg Weight 88.451 kg Weight 88.451 kg Physical Exam Narrative: EXAM NARRATIVE: Pleasant elderly male lying comfortably in his bed Mildly elevated JVD. Abdomen: Distended, morbid obese, mild tenderness in right upper quadrant on deep palpation , bowel sound present Diminished breath sounds bilaterally, bilateral expiratory wheeze present Cardio: S1-S2 regular, pansystolic murmur at fifth para intercostal space. Able to understand my verbal commands No active respiratory distress EOMI, PERRLA No neurological deficit lower extremity 2+ pitting edema bilaterally Data : 07/22/20 04:56 07/22/20 04:56 Micro: Microbiology 07/21/20 05:00 MRSA Culture - Final Nose A&P Assessment and plan (1) Chronic hypoxemic respiratory failure: Status: Acute (2) COPD (chronic obstructive pulmonary disease): Status: Acute (3) Shortness of breath: Status: Acute (4) Sepsis: Status: Acute (5) Hyponatremia: Status: Acute (6) Weakness: Status: Acute (7) Cholelithiasis: Status: Acute (8) Hypokalemia: Status: Acute (9) Acute hypoactive delirium due to another medical condition: Status: Acute Additional A&P Information 72-year-old gentleman past medical history of COPD, chronic hypoxic respiratory failure on 2 to 3 L of oxygen supplementation at baseline, HTN, post thyroidectomy, presented with difficulty in breathing, N/V, fever for 2 days. Acute on chronic hypoxic respiratory failure: Most likely COPD exacerbation. Continue with Advair and Spiriva. Once COVID-19 comes back negative can start him on duo nebs every 6 hours and budesonide twice daily. Change from methylprednisolone IV to prednisone 40 mg daily. Oxygen supplementation keeping saturation 90%. Physical therapy eval and treat. Pneumonia unlikely as patient does not have any consolidation on CTA PE done last night and was ruled out. Rapid COVID was negative. COVID PCR results awaited. Continue with isolation precautions. Urine Legionella, MRSA negative. But given the presentation and hyponatremia for now continue with oral azithromycin for overall 5 to 7 days and will also have anti-inflammatory help given COPD exacerbation. Sepsis: Diagnosed on admission. Pulmonary source unlikely given negative CT chest. Patient does have elevated liver enzymes. Mild tenderness on right upper quadrant as well. Liver ultrasound was questionable for possible common bile duct obstruction without cholecystitis. Ruled out on CT abdomen pelvis with contrast. Zosyn was stopped yesterday and patient has remained hemodynamically stable and afebrile. Weakness secondary to hyponatremia: Hyponatremia: Resolving. Most likely because of hydrochlorothiazide as an outpatient. TSH, HbA1c, lipid panel within normal limits. Echocardiogram results appreciated. Shows EF of 55 to 60% with no diastolic dysfunction, normal pulmonary artery pressures. Urine lites results appreciated. Continue with fluid restriction up to 1500.cc. Salt tabs 1 g p.o. twice daily. Hold off on for any further Lasix. We will monitor sodium daily for now. Strict input and output charting, daily weights. Hypoactive delirium due to sepsis with underlying chronic hyponatremia: Resolved. Serial sodium monitoring Patient currently awake alert oriented x3 GCS 15 without neurological deficit Full code DVT prophylaxis Lovenox Cardiac diet PT eval and treat accordingly. Attestations Medical Necessity Statement*: Hyponatremia, acute on chronic respiratory failure, COPD exacerbation Time Spent in Patient Care: Greater than 35 minutes (>than 50% of time spent in counselling and/or direct pt care on unit). Coding Level of Care Code Acute Bareback Rider for [facility] Fwd Diagnoses Chronic hypoxemic respiratory failure J96.11 COPD (chronic obstructive pulmonary disease) J44.9 Shortness of breath R06.02 Sepsis A41.9 Hyponatremia E87.1 Weakness R53.1 Cholelithiasis K80.20 Hypokalemia E87.6 Acute hypoactive delirium due to another medical condition F05
[2020-07-22] MEDS: potassium chloride ER 10 mEq Tablet 40 MEQ PO (08:25)
[2020-07-22] MEDS: azithromycin 250 mg Tablet 500 MG PO (08:25)
[2020-07-22] MEDS: predniSONE 20 mg Tablet 40 MG PO (08:25)
[2020-07-22] MEDS: nicotine 21 mg Patch 1 PATCH TRANSDERMA (08:29)
[2020-07-22] MEDS: metoprolol tartrate 50 mg Tablet PO ×2 (09:45→17:23)
[2020-07-22] MEDS: levothyroxine 88 mcg Tablet PO (09:46)
[2020-07-22] MEDS: amlodipine 5 mg Tablet PO (09:46)
[2020-07-22] MEDS: sodium chloride 1 gm Tablet PO ×2 (10:22→17:24)
[2020-07-22 11:46] LABS: Coronavirus Lab Test PTC Negative
[2020-07-22] MEDS: albuterol 8 gm MDI 2 PUFF INHALATION (14:18)
[2020-07-22] MEDS: aspirin 81 mg EC Tablet PO (17:23)
[2020-07-23] VITALS (7 sets, daily range): BP systolic 128–177; BP diastolic 77–83; PULSE 67–79; RESP 17–18; TEMP 36.4–37.2; O2SAT 88–97
[2020-07-23] MEDS: acetaminophen 500 mg Tablet PO ×3 (02:11→11:26)
[2020-07-23 06:02] LABS: Alanine Aminotransferase 137 U/L (0-41); Albumin Level 3.4 g/dL (3.5-5.2); Alkaline Phosphatase 84 IU/L (40-130); Anion Gap 13.2 (5-19); Aspartate Amino Transferase 36 U/L (0-40); Blood Urea Nitrogen 20 mg/dL (8-23); Carbon Dioxide 28 mmol/L (22-29); Chloride 94 mmol/L (98-107); Globulin 2.7 g/dL (1.3-4.6); Glucose 85 mg/dL (65-115); Osmolality Calculated 274 mOsm/kg (285-295); Potassium 4.2 mmol/L (3.5-5.1); Sodium 131 mmol/L (136-145); Total Bilirubin 0.6 mg/dL (0.15-1.2); Total Protein 6.1 g/dL (6.6-8.7)
[2020-07-23] MEDS: enoxaparin 40 mg/0.4 mL Syringe SUBCUT (06:28)
[2020-07-23] MEDS: nicotine 21 mg Patch 1 PATCH TRANSDERMA (08:07)
[2020-07-23] MEDS: potassium chloride ER 10 mEq Tablet 40 MEQ PO (08:07)
[2020-07-23] MEDS: predniSONE 20 mg Tablet 40 MG PO (08:08)
[2020-07-23] MEDS: amlodipine 5 mg Tablet PO (08:08)
[2020-07-23] MEDS: levothyroxine 88 mcg Tablet PO (08:08)
[2020-07-23] MEDS: metoprolol tartrate 50 mg Tablet PO (08:08)
[2020-07-23] MEDS: azithromycin 250 mg Tablet 500 MG PO (08:32)
[2020-07-23] MEDS: sodium chloride 1 gm Tablet PO (08:53)
[2020-07-23] MEDS: ipratropium-albuterol 3 mL Neb INHALATION (09:04)
[2020-07-23] MEDS: budesonide 0.5 mg/2 mL Neb INHALATION (09:04)
--- NOTE | 2020-07-23 11:16 | PM.DCS ---
Discharge Providers Date of Admission: 07/20/20 03:51 Date of Discharge: July 23, 2020 Attending Provider at Admission: Shilpi Nixon MD Attending Provider at Discharge: Pedro Taylor MD Primary Care Provider: Luan Cohen Diagnoses at Discharge Discharge Diagnosis (1) Chronic hypoxemic respiratory failure: Status: Acute (2) COPD (chronic obstructive pulmonary disease): Status: Acute (3) Shortness of breath: Status: Acute (4) Sepsis: Status: Acute (5) Hyponatremia: Status: Acute (6) Weakness: Status: Acute (7) Cholelithiasis: Status: Acute (8) Hypokalemia: Status: Acute (9) Acute hypoactive delirium due to another medical condition: Status: Acute Reason for Visit Reason for Visit: SOB Hospital Course Discharge Summary: Mason Castaneda is a 75 year old male who carries history of sleep apnea, oxygen dependent COPD uses 2 L of oxygen at home, nicotine dependence came in with chief complaint of fever and shortness of breath. is also at the bedside who is endorsing that on Friday night patient started complaining of lower back pain which was radiating towards his abdomen and right upper quadrant area, he did not complain of any shortness of breath or chest pain on Friday. On subsequent days he was really weak lethargic and seemed confused on Friday he started experiencing pursed lip breathing with audible wheezing his temperature was 101 at home. His brought him to the hospital for further evaluation. Patient denies nausea, vomiting, dysuria, diarrhea chest pain. Patient is endorsing fever associated with chills abdominal pain mostly in right upper quadrant area. He is denying cough, sputum production. Diagnosis in the ER revealed tachypnea, tachycardia, leukocytosis he was treated with ceftriaxone and azithromycin for possible pneumonia, CT scan did not show any pneumonia or PE however abnormal transaminases noticed on chemistry I have requested gallbladder ultrasound and added metronidazole to ceftriaxone regimen Clinically he looks fluid overloaded mostly with right-sided heart failure features is stating that he has seen a senior planning analyst for chronic hyponatremia, he takes hydrochlorothiazide 12.5 mg every day for hypertension, he does not use Lasix, no history of SD, stroke, coronary disease or heart failure. His facilities supervisor at [place] recommended to titrate up his oxygen from 2 L to 3 L for his COPD. He was admitted to the hospital for possible sepsis and started on broad-spectrum antibiotics. CT chest was done on admission which was negative for any pneumonia but consistent with longstanding COPD. He was started on [id number] nebulizations along with steroids. Liver ultrasound was negative for cholecystitis but was questionable for possible for bile duct obstruction which was ruled out on CT abdomen pelvis with contrast. Sepsis was ruled out. His antibiotics were stopped and he was monitored for 48 hours. Admission he was found to have hyponatremia. Hydrochlorothiazide was withheld. He was treated with fluid restriction and salt tabs which he tolerated well and his sodium levels on on discharge had improved to 131. He is advised to take salt tablets for 2 more days and after that regular salt diet. He is been discharged hemodynamically stable condition on home exercise program with salt tablets for 2 more days and azithromycin for 3 days. Amlodipine has been added to his medication list for better blood pressure control. Physical Exam Narrative: EXAM NARRATIVE: Pleasant elderly male lying comfortably in his bed Mildly elevated JVD. Abdomen: Distended, morbid obese, mild tenderness in right upper quadrant on deep palpation , bowel sound present Diminished breath sounds bilaterally, bilateral expiratory wheeze present Cardio: S1-S2 regular, pansystolic murmur at fifth para intercostal space. Able to understand my verbal commands No active respiratory distress EOMI, PERRLA No neurological deficit lower extremity 2+ pitting edema bilaterally Discharge Data Data Completed and Pending: Completed Studies During Hospitalization Category Date Time Status CT abdomen pelvis w con* [id number] Rout ine Cat Scan 07/21/20 11:[address] angio chest PE protcl [id number] Urge nt Cat Scan 07/20/20 01:[address] head wo con* 7 0450 Urgent Cat Scan 07/20/20 01:57 Completed XR chest 1V reyna ble [id number] Urgent Exams 07/20/20 00:28 Completed CV echo complete* [id number] Routine Ultrasound 07/20/20 06:45 Completed US liver [id number] Ro utine Ultrasound 07/20/20 09:18 Completed Pending at discharge Category Date Time Status Blood Culture Sta t Lab 07/20/20 00:55 Results Labs from last 24 hours 07/23/20 07/20/20 05:13 09:30 Sodium 131 L Potassium 4.2 Chloride 94 L Carbon Dioxide 28 Anion Gap 13.2 BUN 20 Creatinine 0.7 GFR Calculation Not Reportable Glucose 85 Calculated Osmolal ity 274 L Calcium 9.0 Total Bilirubin 0.6 AST 36 ALT 137 H Alkaline Phosphata se 84 Total Protein 6.1 L Albumin 3.4 L Globulin 2.7 Nasal/Oral COVID-1 9 PCR Negative Vitals: Last Vital Signs Temp 98.2 F 07/23/20 07:45 Pulse 67 07/23/20 09:04 Resp 18 07/23/20 09:04 BP 147/80 07/23/20 07:45 Pulse Ox 96 07/23/20 09:04 Discharge Plan Discharge Patient Disposition: Home Condition: Stable Prescriptions: New azithromycin 250 mg Tablet 500 mg PO DAILY Qty: 3 RF: 0 amlodipine 5 mg Tablet 5 mg PO DAILY Qty: 30 RF: 0 sodium chloride 1 gram Tablet 1 g PO BID Qty: 4 RF: 0 methylprednisolone [Medrol (Brandyn)] 4 mg tablets,dose pack See Rx Instructions .ROUTE .COMPLEX Qty: 21 RF: 0 Continued chlorpheniramine maleate 4 mg Tablet 4 mg PO QID PRN (Reason: UNKNOWN) RF: 0 ipratropium-albuterol 0.5 mg-3 mg(2.5 mg base)/3 mL Solution For Nebulization 3 ml INHALATION Q4H PRN (Reason: Shortness Of Breath) RF: 0 metoprolol tartrate 100 mg Tablet 50 mg PO BID RF: 0 aspirin 81 mg Tablet,Delayed Release (Dr/Ec) 81 mg PO QPM RF: 0 levothyroxine 88 mcg Tablet 88 mcg PO DAILY RF: 0 simvastatin 20 mg Tablet 10 mg PO QPM RF: 0 albuterol sulfate 90 mcg/actuation Hfa Aerosol Inhaler 2 puff INHALATION QID PRN (Reason: Shortness Of Breath) RF: 0 budesonide-formoterol 160-4.5 mcg/actuation Hfa Aerosol Inhaler 2 puff INHALATION BID RF: 0 Vitamin D3 50 mcg (2,000 unit) Capsule 50 mcg PO DAILY RF: 0 tiotropium bromide 2.5 mcg/actuation Mist 2 puff INHALATION DAILY RF: 0 Fish Oil 2 cap PO DAILY RF: 0 Vitamin C 1 tab PO DAILY RF: 0 red yeast rice 2 tab PO DAILY RF: 0 Discontinued hydrochlorothiazide 25 mg Tablet 12.5 mg PO QAM RF: 0 Discharge Orders: Discharge Order (Routine); Ordered 07/23/20 Ordered By: Pedro Taylor Referrals: Luan Cohen [Primary Care Provider] - 7-10 days Discharge Diet: Regular Discharge Activity: Resume usual activity and Increase activity as tolerated Activity Restrictions/Additional Instructions: Please take 4 tablets for next 2 days. After that take regular diet with added salt. Hydrochlorothiazide have been removed from medication list because of decreased sodium levels on admission. Please follow-up with your primary care provider within next 7 to 10 days with a repeat CMP level. Azithromycin antibiotic which he supposed to take for 3 more days. Discharge Attestations Time Spent in Discharge Care*: greater than 30 min Specific Discharge Activities: Specific discharge activities: educating patient, discussing with pcp/other providers, discussing with home health care case manager/social workers/dc planners, documenting/other paperwork and evaluating patient/reviewing data Status at Discharge: Cognitive status at discharge: cognitively intact, Behavioral status at discharge: cooperative, Functional status at discharge: uses cane/walker Overall status at discharge: patient is progressing back to baseline Quality Metrics Clinical Quality Measures During this hospital stay, did patient experience: None Coding Level of Care Code Acute Geological Specialist for Juan Luis Fwanat Diagnoses Chronic hypoxemic respiratory failure J96.11 COPD (chronic obstructive pulmonary disease) J44.9 Shortness of breath R06.02 Sepsis A41.9 Hyponatremia E87.1 Weakness R53.1 Cholelithiasis K80.20 Hypokalemia E87.6 Acute hypoactive delirium due to another medical condition F05
--- NOTE | 2020-07-23 12:08 | DCPLANNER ---
Pgs 1&2 of IM reviewed with pt. No questions, copy provided, one to the chart.
--- NOTE | 2020-07-23 13:23 | PC.NURSE ---
Discharge note Patient discharge instructions given per physician orders with new meds and side effects taught. Patient verbalized understanding. IV removed with catheter intact. Pressure dressing applied. Patient left via wheelchair to private vehicle.
--- NOTE | 2020-07-24 07:51 | PC.RESP ---
Smoking Cessation and Pulmonary Rehab information sent to patient.
== END 2020-07-23 13:26 | disposition home or self-care (01) | DRG 190 ==
LOC: ER 03:52 → MEDSURG 04:05
PROVIDERS: Emergency Medicine; Admitting Provider Internal Medicine; PCP Family Medicine; Visit Provider Student in an Organized Health Care Education/Training Program
DX: J44.1 Chronic obstructive pulmonary disease with (acute) exacerbation (principal); J96.21 Acute and chronic respiratory failure with hypoxia; E87.1 Hypo-osmolality and hyponatremia; F05 Delirium due to known physiological condition; I11.0 Hypertensive heart disease with heart failure; G47.33 Obstructive sleep apnea (adult) (pediatric); Z99.81 Dependence on supplemental oxygen; F17.210 Nicotine dependence, cigarettes, uncomplicated; I50.811 Acute right heart failure; N40.0 Benign prostatic hyperplasia without lower urinary tract symptoms; K80.20 Calculus of gallbladder without cholecystitis without obstruction; E87.6 Hypokalemia; E89.0 Postprocedural hypothyroidism; Z79.51 Long term (current) use of inhaled steroids; Z79.82 Long term (current) use of aspirin
CPT/HCPCS: 12345; 36415; 36600; 70450; 71045; 71275; 74177; 76705; 80048; 80053; 80061; 81001; 82436; 82570; 82728; 82803; 83036; 83605; 83880; 83930; 83935; 84133; 84295; 84300; 84443; 84550; 85025; 85384; 86140; 86403; 86705; 86706; 86709; 86803; 87040; 87205; 87340; 87426; 87449; 87635; 87641; 93005; 93306; 94640; 94660; 96372; 96375; 97110; 97116; 97162; 99283; J0456; J0696; J1650; J1940; J2543; J2920; J3535; J7030; J7050; J7512; J7626; Q0144; Q3014; Q9967

== ENCOUNTER 2020-09-11 20:00 | Outpatient (CLI) | payer OTHER, MEDICARE, SELFPAY | END 2020-09-11 20:01 | disposition home or self-care (01) | LOC: SLEEP 09-12 09:26 | PROVIDERS: PCP Family Medicine; Visit Provider Family Medicine | DX: G47.33 Obstructive sleep apnea (adult) (pediatric) (principal) | CPT/HCPCS: 95811 ==

== ENCOUNTER 2021-12-04 16:27 | Emergency (ER) | payer OTHER, MEDICARE, SELFPAY ==
[2021-12-04] VITALS (8 sets, daily range): BP systolic 116–153; BP diastolic 77–88; PULSE 86–92; RESP 18–22; TEMP 37; O2SAT 86–98
--- NOTE | 2021-12-04 17:09 | ECG_ITS ---
[facility] Test Date: 2021-12-04 Pat Name: Mason Castaneda Department: Room: Gender: Male Park Guide: : 1945 Requested By: Nancy Perez Order Number: [id number] Álvaro MD: Viola Matias M.D. Measurements Intervals [place] Rate: 93 P: 54 GA: 135 QRS: -77 QRSD: 140 T: 59 QT: 386 QTc: 482 Interpretive Statements SINUS RHYTHM WITH OCCASIONAL SUPRAVENTRICULAR PREMATURE COMPLEXES RIGHT BUNDLE BRANCH BLOCK [120+ ms QRS DURATION, UPRIGHT V1, 40+ ms S IN I/aVL/V4/V5/V6] LEFT ANTERIOR FASCICULAR BLOCK [QRS AXIS <= -45, QR IN I, RS IN II] POSSIBLE SEPTAL MYOCARDIAL INFARCTION , OF INDETERMINATE AGE [30 ms Q WAVE IN V1/V2] Compared to ECG 07/20/2020 00:36:45 Left anterior fascicular block now present Atrial fibrillation no longer present Right-axis deviation no longer present Myocardial infarct finding still present Electronically Signed On 12-05-2021 7:04:04 COPIER OPERATOR by Viola Matias M.D. [id number]
--- NOTE | 2021-12-04 17:11 | ED_ITS ---
HPI - General Adult General: Chief complaint: Shortness of Breath/Dyspnea Stated complaint: GENERALIZED WEAKNESS, POSSIBLE COVID EXPOSURE Time Seen by Provider: 12/04/21 16:48 History of Present Illness: Patient is a 76-year-old male with a history of GERALD, COPD on 3 L oxygen at home, smoking, who presents emergency room for complaints of respiratory distress and cough for the last 2 days. Patient tells me that he was exposed to his son who was tested positive for Covid 7 days ago. Patient has no fever/chills, productive cough, generalized weakness, body ache, nausea/vomiting, diarrhea. Patient has no associated chest pain, exertional chest pain. Patient is try to use his albuterol inhaler at home with mild improvement in symptoms. Patient has any abdominal complaints or complaints at this time. He denies any prior cardiac history, leg swelling, leg pain, hemoptysis, history of VTE. Per , patient has had fever 6 days ago and he was observed at home with oxygen in the 85% at home. Onset: 2 days ago Duration:2 days Location:home Severity:moderate Associated symptoms: Reports dyspnea; Deny chest pain, nausea, rash, palpitations or vomiting Review of Systems Const: Denies: fever(s) or chills Eyes: Denies: change in vision ENMT: Denies: mouth pain Card: Denies: chest pain or palpitations Resp: Reports: dyspnea and non-productive cough GI: Denies: abdominal pain, nausea, vomiting or diarrhea : Denies: dysuria Musc: Denies: extremity pain Skin/Breast: Denies: rash or new lesions Neuro: Denies: weakness in extremities Psych: Reports: other (Normal mood) Roberto/Lymph: Denies: easy bruising PFSH ED PFSH: Medical History BPH (benign prostatic hyperplasia) COPD (chronic obstructive pulmonary disease) Hypertension Hypothyroidism (acquired) Nicotine dependence Sleep apnea Supplemental oxygen dependent Surgical History H/O thyroidectomy History of tonsillectomy Family History Grandmother Cancer Mother Cancer Breast cancer Social History Smoking and tobacco status: current every day smoker cigarettes Years cigarettes smoked: 40 [ Other cigarette details: 1 pack/day] Alcohol intake: never Household members: spouse Housing: House Marital status: Physical Exam Const: COMMON NORMALS: alert HENMT: COMMON NORMALS: atraumatic HEAD & SCALP: atraumatic MOUTH: moist mucous membranes not abnormal Eye: COMMON NORMALS: EOMs intact bilaterally and conjunctivae normal CONJUNCTIVA: Yes conjunctivae normal Neck/C-Spine: COMMON NORMALS: full ROM and supple Resp: COMMON NORMALS: normal respiratory effort OTHER: +coarse breath sonds b/l Cardio: COMMON NORMALS: regular rate RATE: regular rate GI: COMMON NORMALS: Soft to palpation and non-tender PALPATION: Yes Soft to palpation Extremity: COMMON NORMALS: full ROM Neuro: SENSORIUM/ORIENTATION: Yes alert MOTOR EXAM: No Abnormal motor strength present and Other motor observations present (no focal motor deficits) Psych: COMMON NORMALS: speech normal SPEECH: Yes normal speech MOOD & AFFECT: Yes euthymic mood Course Vital Signs: Vital signs: Vital Signs Temperature 98.6 F 12/04/21 16:52 Pulse Rate 86 12/04/21 18:16 Respiratory Rate 22 H 12/04/21 22:28 Blood Pressure 148/77 12/04/21 18:30 Pulse Oximetry 93 12/04/21 22:28 MDM - General Adult Medical Decision Making [76]yo patient presenting to the ED with shortness of breath, cough, and malaise concerning for COVID. Given History, Exam, and Workup presentation most consistent with pneumonia.Presentation not consistent with PE, COPD exacerbat ion, Pneumothorax, TB, Atypical ACS, Esophageal Rupture, Toxic Exposure, Foreign Body Airway Obstruction. Workup: CXR Chest, COVID PCR, covid labs Intervention: Tylenol 1gram, PO challenge, serial reassessment, oxygen, decadron [9:18pm] On reassessment, Covid positive today Findings consistent with COVID. Afebrile currently. Patient continues to sat at 94% on 2L oxygen. Given concerns for possible respiratory decompensation, I have offered patient admission for serial/close observation in the emergency room. At [9:30pm], patient declined admission citing strong desire to go home on home oxygen. I have discussed the risks of leaving hospital today including risks of sudden pulmonary decompensation leading to severe respiratory distress and even . Patient verbalizes understanding the consequence of the risks of leaving the hospital today and alternative including staying for serial observation. Given patient's strong desire to go home, I have offered patient outpatient oxygen tank/supply and portable pulse ox with proper instruction to use at home. Patient agrees to monitor oxygen saturation and to come back to the ED if there is any drops in pulse ox reading despite oxygen use. In addition, I have given patient strict follow up with PCP in 24 hrs for reevaluation. Patient verbalizes understanding of all components of our discussion today and reassures me of follow up with PCP and close monitoring. Patient will be going home on 2L of oxygen per home respiratory assessment. Rx tylenol PRN fever/pain, zofran PRN nausea/vomiting, doxycycline and augmetin for bronchopneumonia on CTA chest likely viral but will treat as bacterial just in case I have given patient strict return precaution for any drops in the pulse ox to less than 88% while on 2L of oxygen Disposition: Discharge. Patient is given strict return precautions for any worsening dypsnea, changes in pulse ox numbers, any worsening fatigue, dehydration, generalized weakness, altered mental status, or any new or concerning issues. Lab Data : 12/04/21 17:07 12/04/21 17:07 Radiology Impressions Chest X-Ray 12/04/21 17:09 IMPRESSION: Bibasilar atelectasis or infiltrate. Chest CTA 12/04/21 20:25 IMPRESSION: 1. Bronchitis and bronchopneumonia 2. No evidence of pulmonary embolism. ADDENDUM: 12/05/21 [id number] Addendum: Additional review of the images reveals that there is a single small embolus in 1 of the subsegmental branches in the medial segment of the right middle lobe consistent with acute pulmonary embolism. There is also mildly prominent right hilar lymph node measuring 12 x 17 mm which is slightly larger than the previous examination and may represent reactive lymph node. Telephone report of these findings was given to Dr. Leon by Dr. Kasie Cisneros at 11am eastern today. Laboratory Results WBC 7.8 10^3/uL (4.0-10.0) 12/04/21 17:07 RBC 3.87 10^6/uL (4.1-5.3) L 12/04/21 17:07 Hgb 12.8 g/dL (11.7-16.6) 12/04/21 17:07 Hct 37.5 % (42.0-52.0) L 12/04/21 17:07 MCV 96.9 fl (80-94) H 12/04/21 17:07 MCH 33.1 pg (28.0-34.0) 12/04/21 17:07 MCHC 34.1 g/dL (30.0-36.0) 12/04/21 17:07 RDW 14.2 % (12.1-15.1) 12/04/21 17:07 Plt Count 178 10^3/cmm (130-400) 12/04/21 17:07 MPV 9.5 fL (7.4-10.4) 12/04/21 17:07 Neut % (Auto) 78.2 % 12/04/21 17:07 Lymph % (Auto) 9.7 % 12/04/21 17:07 Bowman % (Auto) 11.3 % 12/04/21 17:07 Eos % (Auto) 0.1 % 12/04/21 17:07 Baso % (Auto) 0.3 % 12/04/21 17:07 Neut # (Auto) 6.12 10^3/uL (1.8-7.7) 12/04/21 17:07 Lymph # (Auto) 0.8 10^3/uL (0.8-4.8) 12/04/21 17:07 Bowman # (Auto) 0.9 10^3/uL (0.2-0.9) 12/04/21 17:07 Eos # (Auto) 0.0 10^3/uL (0.0-0.8) 12/04/21 17:07 Baso # (Auto) 0.0 10^3/uL (0.0-0.1) 12/04/21 17:07 Nucleated RBC % (auto) 0 % 12/04/21 17:07 Nucleated RBCs # 0.0 /100WBC 12/04/21 17:07 D-Dimer 1.13 ug/mIFEU (0-0.59) H 12/04/21 17:07 Sodium 129 mmol/L (136-145) L 12/04/21 17:07 Potassium 3.5 mmol/L (3.5-5.1) 12/04/21 17:07 Chloride 95 mmol/L (98-107) L 12/04/21 17:07 Carbon Dioxide 21 mmol/L (22-29) L 12/04/21 17:07 Anion Gap 16.5 (5-19) 12/04/21 17:07 BUN 8 mg/dL (8-23) 12/04/21 17:07 Creatinine 0.5 mg/dL (0.7-1.2) L 12/04/21 17:07 GFR Calculation Not Reportable 12/04/21 17:07 Glucose 91 mg/dL (65-115) 12/04/21 17:07 Calculated Osmolality 266 mOsm/kg (285-295) L 12/04/21 17:07 Calcium 8.9 mg/dL (8.5-10.5) 12/04/21 17:07 Troponin T Baseline 30 ng/L (0-15) H 12/04/21 17:07 Troponin T 120 Minute 28.02 ng/L (0-15) H 12/04/21 19:20 Delta Troponin T -1.98 ABS# (0-10) L 12/04/21 19:20 NT-Pro-B Natriuret Pep 304 pg/mL (0-125) H 12/04/21 17:07 Coronavirus 229E (PCR) Not detected (NOT DETECT) 12/04/21 17:30 SARS-CoV-2 (PCR) Detected (NOT DETECT) A 12/04/21 17:30 Imaging Data Other Imaging: Radiologist's impression: [address] [address] XRay Report Signed Patient: Mason Castaneda Unit #: [id number] : 1945 Age/Sex: 76 / M ADM Date: 12/04/21 Loc: ER Room/Bed: Attending Dr: Ordering Provider/Ordering MD: Nancy Perez MD Date of Service: 12/04/21 Procedure(s): XR chest 1V portable [id number] Accession Number(s): [id number] Report Number: [id number] PROCEDURE INFORMATION: Exam: XR Chest Exam date and time: 12/04/2021 5:09 PM Age: 76 years old Clinical indication: Cough and shortness of breath; Additional info: Dyspnea TECHNIQUE: Imaging protocol: XR of the chest. Views: 1 view. COMPARISON: CR XR chest 1V portable [id number] 07/20/2020 12:45 AM FINDINGS: Lungs: There is some partial atelectasis or infiltrate at the lung bases more on the right than on the left. There is no pulmonary venous congestion. Pleural spaces: Unremarkable. No pleural effusion. No pneumothorax. Heart/Mediastinum: Heart is within normal limits of size. Bones/joints: Unremarkable. XR/XR chest 1V portable [id number] IMPRESSION: Bibasilar atelectasis or infiltrate. ? Dictated By: Gregg Murphy Signed By: Gregg Murphy Signed Date/Time: 12/04/211736 DD/ [address] [place] [address] CT Scan Report Signed Patient: Mason Castaneda Unit #: [id number] : 1945 Age/Sex: 76 / M ADM Date: 12/04/21 Loc: ER Room/Bed: Attending Dr: Ordering Provider/Ordering MD: Nancy Perez MD Date of Service: 12/04/21 Procedure(s): CT angio chest PE protcl [id number] Accession Number(s): [id number] Report Number: [id number] PROCEDURE INFORMATION: Exam: CTA Chest With Contrast Exam date and time: 12/04/2021 8:25 PM Age: 76 years old Clinical indication: Cough and shortness of breath; Additional info: Eval for pe TECHNIQUE: Imaging protocol: Computed tomographic angiography of the chest with contrast. 3D rendering (Not supervised by radiologist): MIP and/or 3D reconstructed images were created by the technologist. Radiation optimization: All CT scans at this facility use at least one of these dose optimization techniques: automated exposure control; mA and/or kV adjustment per patient size (includes targeted exams where dose is matched to clinical indication); or iterative reconstruction. Contrast material: OMNI 350; Contrast volume: 77 ml; Contrast route: INTRAVENOUS (IV);? COMPARISON: CT angio chest PE protcl [id number] 07/20/2020 2:39 AM RADIATION DOSE METRICS: Total DLP (mGy-cm): 633.18 FINDINGS: Pulmonary arteries: There is no evidence of filling defects within the pulmonary arterial circulation to suggest pulmonary embolism. Aorta: There is mild atherosclerotic calcification of the aortic arch and descending thoracic aorta. There is no thoracic aortic aneurysm or dissection. Lungs: There is some partial atelectasis at the right lung base. There is bronchial wall thickening and mild patchy peribronchial infiltrate in the right middle lobe in keeping with some bronchitis and bronchopneumonia. There is also some similar bronchial wall thickening and peribronchial infiltrate right lower lobe consistent with bronchopneumonia.? There is bronchial wall thickening and mild peripheral tree-in-bud type nodular opacities at the left lung base which may represent some bronchitis and infectious bronchiolitis. Pleural spaces: There is a small right pleural effusion. Heart: Unremarkable. No cardiomegaly. No pericardial effusion. Lymph nodes: There are small mediastinal and hilar lymph nodes but no adenopathy. Bones/joints: Unremarkable. No acute fracture. Soft tissues: Unremarkable. CT/CT angio chest PE protcl [id number] IMPRESSION: 1. Bronchitis and bronchopneumonia 2. No evidence of pulmonary embolism. ? Dictated By: Gregg Murphy Signed By: Gregg Murphy Signed Date/Time: 12/04/212131 DD/ [address] [address] XRay Report Signed Patient: Mason Castaneda Unit #: [id number] : 1945 Age/Sex: 76 / M ADM Date: 12/04/21 Loc: ER Room/Bed: Attending Dr: Ordering Provider/Ordering MD: Nancy Perez MD Date of Service: 12/04/21 Procedure(s): XR chest 1V portable [id number] Accession Number(s): [id number] Report Number: [id number] PROCEDURE INFORMATION: Exam: XR Chest Exam date and time: 12/04/2021 5:09 PM Age: 76 years old Clinical indication: Cough and shortness of breath; Additional info: Dyspnea TECHNIQUE: Imaging protocol: XR of the chest. Views: 1 view. COMPARISON: CR XR chest 1V portable [id number] 07/20/2020 12:45 AM FINDINGS: Lungs: There is some partial atelectasis or infiltrate at the lung bases more on the right than on the left. There is no pulmonary venous congestion. Pleural spaces: Unremarkable. No pleural effusion. No pneumothorax. Heart/Mediastinum: Heart is within normal limits of size. Bones/joints: Unremarkable. XR/XR chest 1V portable [id number] IMPRESSION: Bibasilar atelectasis or infiltrate. ? Dictated By: Gregg Murphy Signed By: Gregg Murphy Signed Date/Time: 12/04/211736 DD/ 08 Discharge Plan Discharge Patient Disposition: Home Clinical Impression: Dyspnea, COVID, Bronchopneumonia Condition: Stable Prescriptions: New Zofran 4 mg tablet 4 mg PO TID PRN (Reason: nausea and vomiting) 4 Days Qty: 12 0RF acetaminophen 500 mg tablet 500 mg PO Q6H PRN (Reason: pain) 5 Days Qty: 20 0RF Pepcid 20 mg tablet 20 mg PO BID PRN (Reason: abdominal pain) 10 Days Qty: 20 0RF Maalox Advanced 1,000-60 mg tablet,chewable 1 tab PO TID PRN (Reason: abdominal pain) 7 Days Qty: 21 0RF doxycycline hyclate 100 mg capsule 100 mg PO BID 10 Days Qty: 20 0RF Augmentin 500-125 mg tablet 1 tab PO BID 10 Days Qty: 20 0RF No Action chlorpheniramine maleate 4 mg Tablet 4 mg PO QID PRN (Reason: UNKNOWN) 0RF Rx Instructions: MEDICATION ON VA LIST ipratropium-albuterol 0.5 mg-3 mg(2.5 mg base)/3 mL Solution For Nebulization 3 ml INHALATION Q4H PRN (Reason: Shortness Of Breath) 0RF Rx Instructions: PT STATES HE USES THIS MEDICATION-MEDICATION ON VA MED LIST metoprolol tartrate 100 mg Tablet 50 mg PO BID 0RF Rx Instructions: PT STATES HE TAKES THIS MEDICATION-MEDICATION IS ON PTS VA MED LIST aspirin 81 mg Tablet,Delayed Release (Dr/Ec) 81 mg PO QPM 0RF levothyroxine 88 mcg Tablet 88 mcg PO DAILY 0RF Rx Instructions: PT STATES HE TAKES THIS MEDICATION-MEDICATION IS ON PTS VA MED LIST simvastatin 20 mg Tablet 10 mg PO QPM 0RF Rx Instructions: PT STATES HE TAKES THIS MEDICATION-MEDICATION IS ON PTS VA MED LIST albuterol sulfate 90 mcg/actuation Hfa Aerosol Inhaler 2 puff INHALATION QID PRN (Reason: Shortness Of Breath) 0RF Rx Instructions: MEDICATION ON VA MED LIST budesonide-formoterol 160-4.5 mcg/actuation Hfa Aerosol Inhaler 2 puff INHALATION BID 0RF Rx Instructions: MEDICATION ON VA MED LIST Vitamin D3 50 mcg (2,000 unit) Capsule 50 mcg PO DAILY 0RF Rx Instructions: PT STATES HE TAKES THIS MEDICATION-MEDICATION IS ON PTS VA MED LIST tiotropium bromide 2.5 mcg/actuation Mist 2 puff INHALATION DAILY 0RF Rx Instructions: PT STATES HE TAKES THIS MEDICATION-MEDICATION IS ON PTS VA MED LIST Fish Oil 2 cap PO DAILY 0RF Vitamin C 1 tab PO DAILY 0RF red yeast rice 2 tab PO DAILY 0RF azithromycin 250 mg Tablet 500 mg PO DAILY Qty: 3 0RF sodium chloride 1 gram Tablet 1 g PO BID Qty: 4 0RF amlodipine 5 mg Tablet 5 mg PO DAILY Qty: 30 0RF Medrol (Brandyn) 4 mg tablets,dose pack See Rx Instructions .ROUTE .COMPLEX Qty: 21 0RF Rx Instructions: orally per package directions Discharge Orders: Discharge ED (Routine); Ordered 12/04/21 Ordered By: Nancy Perez Other Ambulatory Orders: Request for MCA (Routine) Timeframe: 1 Day Facility: [facility] - Location: Outpatient [facility] Services Ordered By: Nancy Perez DME: Oxygen (Order) Location: None Selected Ordered By: Nancy Perez Referrals: Luan Cohen [Primary Care Provider] - Discharge Diet: Advance as tolerated Discharge Activity: Increase activity as tolerated Patient Instructions: Dyspnea (ED), COVID-19 (Coronavirus Disease 2019) (ED) Activity Restrictions/Additional Instructions: Come back to the emergency room if your symptoms worsen, have any shortness of breath, fever/chills, dehydration, inability tolerate food or drinks, any difficulty breathing, or any new or concerning complaints. Please return the emergency room if your pulse ox reads less than 88%. Our major case detective will have you follow-up with a primary care provider in the next few days. You would be expected to have a phone call with our major case detective who will put you on the schedule. Coding Level of Care Code ED Pickers Material Handlers for Chg Fwd Exam Comprehensive
[2021-12-04] MEDS: ipratropium-albuterol 3 mL Neb INHALATION ×3 (17:50→18:14)
[2021-12-04 18:10] LABS: Troponin(5th) Baseline 30 ng/L (0-15)
[2021-12-04 18:15] LABS: Basophils % 0.3 %; Eosinophils % 0.1 %; Hematocrit 37.5 % (42.0-52.0); Hemoglobin 12.8 g/dL (11.7-16.6); Lymphocytes # 0.8 10^3/uL (0.8-4.8); Lymphocytes % 9.7 %; Mean Corpuscular HGB Conc 34.1 g/dL (30.0-36.0); Mean Corpuscular Hemoglobin 33.1 pg (28.0-34.0); Mean Corpuscular Volume 96.9 fl (80-94); Mean Platelet Volume 9.5 fL (7.4-10.4); Monocytes # 0.9 10^3/uL (0.2-0.9); Monocytes % 11.3 %; Neutrophils # 6.12 10^3/uL (1.8-7.7); Neutrophils % 78.2 %; Nucleated Red Blood Cells % 0 %; Platelet Count 178 10^3/cmm (130-400); Red Blood Count 3.87 10^6/uL (4.1-5.3); Red Cell Distribution Width 14.2 % (12.1-15.1); White Blood Count 7.8 10^3/uL (4.0-10.0)
[2021-12-04 18:21] LABS: NT Pro B Type Natriuretic Pept 304 pg/mL (0-125)
[2021-12-04 18:40] LABS: Anion Gap 16.5 (5-19); Blood Urea Nitrogen 8 mg/dL (8-23); Calcium 8.9 mg/dL (8.5-10.5); Carbon Dioxide 21 mmol/L (22-29); Chloride 95 mmol/L (98-107); Glucose 91 mg/dL (65-115); Osmolality Calculated 266 mOsm/kg (285-295); Potassium 3.5 mmol/L (3.5-5.1); Sodium 129 mmol/L (136-145)
--- NOTE | 2021-12-04 19:09 | ECG_ITS ---
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 Measurements Intervals [place] Rate: 83 P: 49 VT: 170 QRS: -31 QRSD: 91 T: 112 QT: 354 QTc: 418 Interpretive Statements SINUS RHYTHM LEFT AXIS DEVIATION [QRS AXIS < -30] ST DEVIATION AND MODERATE T-WAVE ABNORMALITY, CONSIDER LATERAL ISCHEMIA [-0.1+ mV T-WAVE IN I/aVL/V5/V6] Compared to ECG 12/04/2021 18:30:43 Left-axis deviation now present T-wave abnormality now present Possible ischemia now present Right bundle-branch block no longer present Left anterior fascicular block no longer present Myocardial infarct finding no longer present Electronically Signed On 12-05-2021 18:38:42 LIQUOR GALLERY OPERATOR by Marcell Acevedo M.D. [id number]
[2021-12-04 20:17] LABS: Troponin 5 2HR 28.02 ng/L (0-15)
[2021-12-04 20:19] LABS: Troponin 5 2HR Delta -1.98 ABS# (0-10)
[2021-12-04 20:23] LABS: D Dimer 1.13 ug/mIFEU (0-0.59)
--- NOTE | 2021-12-04 20:25 | CTR_ITS ---
PROCEDURE INFORMATION: Exam: CTA Chest With Contrast Exam date and time: 12/04/2021 8:25 PM Age: 76 years old Clinical indication: Cough and shortness of breath; Additional info: Eval for pe TECHNIQUE: Imaging protocol: Computed tomographic angiography of the chest with contrast. 3D rendering (Not supervised by radiologist): MIP and/or 3D reconstructed images were created by the technologist. Radiation optimization: All CT scans at this facility use at least one of these dose optimization techniques: automated exposure control; mA and/or kV adjustment per patient size (includes targeted exams where dose is matched to clinical indication); or iterative reconstruction. Contrast material: OMNI 350; Contrast volume: 77 ml; Contrast route: INTRAVENOUS (IV); COMPARISON: CT angio chest PE protcl [id number] 07/20/2020 2:39 AM RADIATION DOSE METRICS: Total DLP (mGy-cm): 633.18 FINDINGS: Pulmonary arteries: There is no evidence of filling defects within the pulmonary arterial circulation to suggest pulmonary embolism. Aorta: There is mild atherosclerotic calcification of the aortic arch and descending thoracic aorta. There is no thoracic aortic aneurysm or dissection. Lungs: There is some partial atelectasis at the right lung base. There is bronchial wall thickening and mild patchy peribronchial infiltrate in the right middle lobe in keeping with some bronchitis and bronchopneumonia. There is also some similar bronchial wall thickening and peribronchial infiltrate right lower lobe consistent with bronchopneumonia. There is bronchial wall thickening and mild peripheral tree-in-bud type nodular opacities at the left lung base which may represent some bronchitis and infectious bronchiolitis. Pleural spaces: There is a small right pleural effusion. Heart: Unremarkable. No cardiomegaly. No pericardial effusion. Lymph nodes: There are small mediastinal and hilar lymph nodes but no adenopathy. Bones/joints: Unremarkable. No acute fracture. Soft tissues: Unremarkable. CT/CT angio chest PE protcl [id number] IMPRESSION: 1. Bronchitis and bronchopneumonia 2. No evidence of pulmonary embolism.
[2021-12-04 20:28] LABS: Adenovirus Not Detected (NOT DETECT); Chlamydia Pneumoniae Not Detected (NOT DETECT); Coronavirus 229E,HKU1,NL63,OC4 Not Detected (NOT DETECT); Human Metapneumovirus Not Detected (NOT DETECT); Human Rhinovirus/Enterovirus Not Detected (NOT DETECT); Influenza A Not Detected (NOT DETECT); Influenza A H1 Not Detected (NOT DETECT); Influenza A H1-2009 Not Detected (NOT DETECT); Influenza A H3 Not Detected (NOT DETECT); Influenza B Not Detected (NOT DETECT); Mycoplasma Pneumoniae Not Detected (NOT DETECT); Parainfluenza Virus Type 1 Not Detected (NOT DETECT); Parainfluenza Virus Type 2 Not Detected (NOT DETECT); Parainfluenza Virus Type 3 Not Detected (NOT DETECT); Parainfluenza Virus Type 4 Not Detected (NOT DETECT); Respiratory Syncytial Virus A Not Detected (NOT DETECT); Respiratory Syncytial Virus B Not Detected (NOT DETECT); SARS-COV-2 Detected (NOT DETECT)
[2021-12-04] MEDS: iohexol 350 mg/mL 100 mL Btl IV (20:59)
--- NOTE | 2021-12-04 22:26 | PC.NURSE ---
this nurse spoke with the family and they are on there way to get him. pt is already on home oxygen. pt and son updated on status.
--- NOTE | 2021-12-06 12:47 | DCPLANNER ---
Addendum entered by Tiffanie Peñaloza 12/28/21 10:35: Patient had a follow up appointment scheduled with [facility] - appointment was cancelled. Original Note: complex case manager had message to speak with patient about getting a primary care physician. complex case manager was unable to reach patient.
== END 2021-12-04 22:45 | disposition home or self-care (01) ==
PROVIDERS: Emergency Provider Emergency Medicine; PCP Family Medicine
DX: U07.1 COVID-19 (principal); J18.0 Bronchopneumonia, unspecified organism; Z79.82 Long term (current) use of aspirin; J44.9 Chronic obstructive pulmonary disease, unspecified; I10 Essential (primary) hypertension; F17.210 Nicotine dependence, cigarettes, uncomplicated; Z99.81 Dependence on supplemental oxygen
CPT/HCPCS: 71045; 71275; 80048; 83880; 84484; 85025; 85378; 87635; 93005; 94640; 96374; 99284; J2930; Q9967

== ENCOUNTER 2021-12-05 15:05 | Observation (INO) | payer OTHER, MEDICARE, SELFPAY ==
[2021-12-05] VITALS (7 sets, daily range): BP systolic 153–165; BP diastolic 77–103; PULSE 68–87; RESP 16–20; TEMP 37.1; O2SAT 94–99; BMI 33.5
--- NOTE | 2021-12-05 15:49 | ED_ITS ---
HPI - General Adult General: Chief complaint: General Medical Stated complaint: sob, covid Time Seen by Provider: 12/05/21 15:40 History of Present Illness: Patient is a 76-year-old male with a history of COPD, hypertension, obstructive sleep apnea who was diagnosed with Covid pneumon ia yesterday and discharged home with 2 L oxygen. Earlier this morning, radiology called Dr. Titus, and informed that on the CT report that patient was found to have a PE that was not communicated yesterday during patient care. Patient was informed to come back to the emergency room for reassessment. Onset: 1 day ago Duration: ongoing Location:home Severity:moderate Associated symptoms: Reports dyspnea; Deny chest pain, nausea, rash, palpitations or vomiting Review of Systems Const: Denies: fever(s) or chills Eyes: Denies: change in vision ENMT: Denies: mouth pain Card: Denies: chest pain or palpitations Resp: Reports: dyspnea and non-productive cough GI: Denies: abdominal pain, nausea, vomiting or diarrhea : Denies: dysuria Musc: Denies: extremity pain Skin/Breast: Denies: rash or new lesions Neuro: Denies: weakness in extremities Psych: Reports: other (Normal mood) Roberto/Lymph: Denies: easy bruising PFSH ED PFSH: Medical History BPH (benign prostatic hyperplasia) COPD (chronic obstructive pulmonary disease) Hypertension Hypothyroidism (acquired) Nicotine dependence Sleep apnea Supplemental oxygen dependent Surgical History H/O thyroidectomy History of tonsillectomy Family History Grandmother Cancer Mother Cancer Breast cancer Social History Smoking and tobacco status: current every day smoker cigarettes Years cigarettes smoked: 40 [ Other cigarette details: 1 pack/day] Alcohol intake: never Household members: spouse Housing: House Marital status: Physical Exam Const: COMMON NORMALS: alert HENMT: COMMON NORMALS: atraumatic HEAD & SCALP: atraumatic MOUTH: moist mucous membranes not abnormal Eye: COMMON NORMALS: EOMs intact bilaterally and conjunctivae normal CONJUNCTIVA: Yes conjunctivae normal Neck/C-Spine: COMMON NORMALS: full ROM and supple Resp: OTHER: +coarse breath sounds b/l Cardio: COMMON NORMALS: regular rate RATE: regular rate GI: COMMON NORMALS: Soft to palpation and non-tender PALPATION: Yes Soft to palpation Extremity: COMMON NORMALS: full ROM Neuro: SENSORIUM/ORIENTATION: Yes alert MOTOR EXAM: No Abnormal motor strength present and Other motor observations present (no focal motor deficits) Psych: COMMON NORMALS: speech normal SPEECH: Yes normal speech MOOD & AFFECT: Yes euthymic mood MDM - General Adult Medical Decision Making 76-year-old male on oxygen for Covid pneumonia will be admitted to hospital for for PE and Covid pneumonia. Patient s/p Lovenox for PE in the ER. Patient was noted to be hypoxemic to the 90-91% room air yesterday and therefore qualifies for Covid pneumonia treatments. S/p Decadron/remdesivir for COVID. There is also concern for possible bronchopneumonia on CTA yesterday, will treat apparently with antibiotics including ceftriaxone and azithromycin. Disposition:admission Discharge Plan Discharge Patient Disposition: Admitted As Inpatient Clinical Impression: Pulmonary embolism, Pneumonia due to 2019 novel coronavirus Condition: Stable Coding Level of Care Code ED Signs And Displays Sales Representative for Juan Luis Rod
[2021-12-05] MEDS: sodium chloride 0.9% 1,000 ML 100 ML IV (17:15)
[2021-12-05] MEDS: enoxaparin 80 mg/0.8 mL Syringe 70 MG SUBCUT (17:16)
[2021-12-05] MEDS: azithromycin 500 MG in sodium chloride 0.9% 250 ML 250 MG IV (17:17)
[2021-12-05] MEDS: cefTRIAXone 1,000 MG in sodium chloride 0.9% (plus) 50 ML 100 MG IV (17:17)
[2021-12-05 17:23] LABS: Basophils % 0.1 %; Hematocrit 39.7 % (42.0-52.0); Hemoglobin 13.6 g/dL (11.7-16.6); Lymphocytes % 9.8 %; Mean Corpuscular HGB Conc 34.3 g/dL (30.0-36.0); Mean Corpuscular Hemoglobin 32.9 pg (28.0-34.0); Mean Corpuscular Volume 96.1 fl (80-94); Mean Platelet Volume 9.3 fL (7.4-10.4); Monocytes # 0.7 10^3/uL (0.2-0.9); Monocytes % 7.4 %; Neutrophils # 8.18 10^3/uL (1.8-7.7); Neutrophils % 82.1 %; Nucleated Red Blood Cells % 0 %; Platelet Count 185 10^3/cmm (130-400); Red Blood Count 4.13 10^6/uL (4.1-5.3); Red Cell Distribution Width 13.7 % (12.1-15.1)
[2021-12-05] MEDS: dexamethasone 10 mg/mL INJ 6 MG IVP (17:28)
[2021-12-05 17:37] LABS: Partial Thromboplastin Time 29.5 SECONDS (23.9-36.7)
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
[2021-12-05 17:54] LABS: Blood Urea Nitrogen 15 mg/dL (8-23); Calcium 9.3 mg/dL (8.5-10.5); Carbon Dioxide 22 mmol/L (22-29); Chloride 95 mmol/L (98-107); Glucose 110 mg/dL (65-115); Osmolality Calculated 271 mOsm/kg (285-295); Sodium 130 mmol/L (136-145)
[2021-12-05 17:58] LABS: Anion Gap 17.2 (5-19); Potassium 4.2 mmol/L (3.5-5.1)
[2021-12-05] MEDS: remdesivir 200 MG in sodium chloride 0.9% (100 ml) 60 ML 100 MG IV (18:28)
--- NOTE | 2021-12-05 21:06 | PC.NURSE ---
Patient received from ED a few minutes prior to my shift. 20 mg of lovenox on jan. Was already given the 70mg dose in ED. Not given.
[2021-12-05] MEDS: ipratropium-albuterol 3 mL Neb INHALATION (21:56)
[2021-12-06] VITALS (12 sets, daily range): BP systolic 142–161; BP diastolic 77–87; PULSE 66–96; RESP 18–24; TEMP 36.3–36.9; O2SAT 90–96
--- NOTE | 2021-12-06 | USCV_ITS ---
Transthoracic Echo w Contrast Mason Castaneda Age: 76 Gender: M : 1945 Exam Date: 12/06/2021 06:31 Ordering Phys: Dre Darden MD Technologist: GILBERT Exam Location: [facility] [place] Indication: PE, LE SWELLING BP: 152 / 85 HR: 64 Rhythm: Sinus Technical Quality: Adequate MEASUREMENTS (Male / Female) Normal Values 2D ECHO LVOT Diameter 2.0 cm LV Ejection Fraction MOD 2C 69.5 % LV Ejection Fraction 2C AL 69.3 % DOPPLER AV Peak Velocity 99.0 cm/s LVOT Peak Velocity 63.0 cm/s AV Area Cont Eq vti 2.9 cm squared AV Area Cont Eq pk 2.1 cm squared MV Area PHT 2.4 cm squared Mitral E to A Ratio 0.9 MV E' Velocity 92.0 cm/s FINDINGS Left Ventricle Limited images obtained because of poor ultrasonic wiondows. LV systolic function is normal with EF of 65%. Right Ventricle Not well-visualized Right Atrium Not visualized Left Atrium Not visualized Mitral Valve Not visualized. Trace mitral regurgitation Aortic Valve Not visualized. Grossly no stenosis Tricuspid Valve Not visualized Pulmonic Valve Not visualized Pericardium Not visualized Aorta Not visualized CONCLUSIONS Limited quality echocardiogram because of poor ultrasonic windows. Contrast agent was used. LV systolic function is normal LVEF of 65%. Trace mitral regurgitation. Valvular structures not seen. Comparison with prior echocardiogram from 07/2020 because of limited images obtained during current study, however LV systolic function is normal Marcell Acevedo MD (Electronically Signed) Final Date: 06 December 2021 11:48 S
--- NOTE | 2021-12-06 05:13 | PC.NURSE ---
Frequent safety and comfort rounds continue. Orders and/or nursing care completed as indicated. Patient monitored for response to intervention and treatment(s). Education provided includes lovenox. Patient and/or claim service representative verbalizes understanding. Will continue to monitor.
[2021-12-06] MEDS: enoxaparin 100 mg/mL Syringe 95 MG SUBCUT ×2 (05:42→16:04)
[2021-12-06 05:48] LABS: Basophils % 0.1 %; Hematocrit 35.9 % (42.0-52.0); Hemoglobin 12.4 g/dL (11.7-16.6); Lymphocytes % 8.8 %; Mean Corpuscular HGB Conc 34.5 g/dL (30.0-36.0); Mean Corpuscular Hemoglobin 33.8 pg (28.0-34.0); Mean Corpuscular Volume 97.8 fl (80-94); Mean Platelet Volume 9.8 fL (7.4-10.4); Monocytes # 0.8 10^3/uL (0.2-0.9); Monocytes % 6.6 %; Neutrophils # 9.63 10^3/uL (1.8-7.7); Neutrophils % 84.1 %; Nucleated Red Blood Cells % 0 %; Platelet Count 182 10^3/cmm (130-400); Red Blood Count 3.67 10^6/uL (4.1-5.3); Red Cell Distribution Width 14.2 % (12.1-15.1); White Blood Count 11.5 10^3/uL (4.0-10.0)
[2021-12-06 06:13] LABS: Alanine Aminotransferase 15 U/L (0-41); Albumin Level 3.3 g/dL (3.5-5.2); Alkaline Phosphatase 42 IU/L (40-130); Anion Gap 17.1 (5-19); Aspartate Amino Transferase 22 U/L (0-40); Blood Urea Nitrogen 12 mg/dL (8-23); Calcium 8.9 mg/dL (8.5-10.5); Carbon Dioxide 21 mmol/L (22-29); Chloride 97 mmol/L (98-107); Globulin 2.7 g/dL (1.3-4.6); Glucose 115 mg/dL (65-115); Osmolality Calculated 273 mOsm/kg (285-295); Potassium 4.1 mmol/L (3.5-5.1); Sodium 131 mmol/L (136-145); Total Bilirubin 0.2 mg/dL (0.15-1.2)
[2021-12-06] MEDS: perflutren protein-a microsphr 0.22 mg/mL SDV 3 mL IV (07:31)
[2021-12-06] MEDS: ipratropium-albuterol 3 mL Neb INHALATION ×3 (08:45→16:02)
[2021-12-06] MEDS: metoprolol tartrate 50 mg Tablet PO (12:03)
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
[2021-12-06] MEDS: cefTRIAXone 1,000 MG in sodium chloride 0.9% (plus) 50 ML 100 MG IV (16:14)
[2021-12-06] MEDS: azithromycin 500 MG in sodium chloride 0.9% 250 ML 250 MG IV (16:32)
== END 2021-12-06 18:01 | disposition home or self-care (01) ==
LOC: ER 16:03 → MEDSURG 18:46
PROVIDERS: Admitting Provider Internal Medicine; Emergency Provider Emergency Medicine; PCP Family Medicine; Visit Provider Internal Medicine
DX: U07.1 COVID-19 (principal); I26.99 Other pulmonary embolism without acute cor pulmonale; J18.0 Bronchopneumonia, unspecified organism; E87.1 Hypo-osmolality and hyponatremia; F17.210 Nicotine dependence, cigarettes, uncomplicated; R77.8 Other specified abnormalities of plasma proteins; Z99.81 Dependence on supplemental oxygen; Z79.82 Long term (current) use of aspirin; N40.0 Benign prostatic hyperplasia without lower urinary tract symptoms; I10 Essential (primary) hypertension; E03.9 Hypothyroidism, unspecified; G47.30 Sleep apnea, unspecified
CPT/HCPCS: 36415; 80048; 80053; 85025; 85610; 85730; 94640; 94664; 96365; 96367; 96372; 96375; 99285; C8929; G0378; J0456; J0696; J1100; J1650; J7030; J7050; Q9956

== ENCOUNTER 2023-09-28 05:17 | Inpatient (IN) | payer OTHER, SELFPAY ==
[2023-09-28] VITALS (17 sets, daily range): BP systolic 97–108; BP diastolic 63–71; PULSE 65–76; RESP 14–28; TEMP 36.4–37.8; O2SAT 89–100; BMI 28.1; BMI 29.0
--- NOTE | 2023-09-28 05:21 | ECG_ITS ---
[facility] Test Date: 2023-09-28 Pat Name: Mason Castaneda Department: Room: Gender: Male Drier Take [employer] Tender: : 1945 Requested By: Melanie Lopez Order Number: [id number] Álvaro MD: Girma Vega M.D. Measurements Intervals [place] Rate: 67 P: 55 WI: 135 QRS: -79 QRSD: 158 T: 54 QT: 450 QTc: 475 Interpretive Statements Significant baseline artifact Rhythm appears to be sinus rhythm with a frequent PACs. RIGHT BUNDLE BRANCH BLOCK [120+ ms QRS DURATION, UPRIGHT V1, 40+ ms S IN I/aVL/V4/V5/V6] Compared to ECG 12/04/2021 21:11:59 Right bundle-branch block now present Myocardial infarct finding now present. Electronically Signed On 09-28-2023 13:41:57 COMPLIANCE AND CONTROL ANALYST by Girma Vega M.D. [email or web address]
--- NOTE | 2023-09-28 05:21 | XRR_ITS ---
PROCEDURE INFORMATION: Exam: XR Chest Exam date and time: 09/28/2023 5:40 AM Age: 78 years old Clinical indication: Shortness of breath; Additional info: AMS TECHNIQUE: Imaging protocol: Radiologic exam of the chest. Views: 1 view. COMPARISON: CT angio chest PE protcl [id number] 12/04/2021 8:51 PM FINDINGS: Lungs: Right lower lobe consolidative infiltrate. The left lung, heart, mediastinum, and bony thorax are normal. Pleural spaces: Unremarkable. No pleural effusion. No pneumothorax. Heart/Mediastinum: See Lungs finding. Bones/joints: See Lungs finding. XR/XR chest 1V portable [id number] IMPRESSION: Right lower lobe pneumonia.
--- NOTE | 2023-09-28 05:21 | CTR_ITS ---
PROCEDURE INFORMATION: Exam: CT Head Without Contrast Exam date and time: 09/28/2023 5:48 AM Age: 78 years old Clinical indication: Altered mental status/memory loss; Additional info: AMS TECHNIQUE: Imaging protocol: Computed tomography of the head without contrast. Radiation optimization: All CT scans at this facility use at least one of these dose optimization techniques: automated exposure control; mA and/or kV adjustment per patient size (includes targeted exams where dose is matched to clinical indication); or iterative reconstruction. REPORTING DATA: Count of CT and Cardiac NM exams in prior 12 months: This patient has received 0 known CTs and 0 known cardiac nuclear medicine studies in the 12 months prior to the current study. COMPARISON: CT head wo con* [id number] 07/20/2020 2:26 AM RADIATION DOSE METRICS: Total DLP (mGy-cm): 898.21 FINDINGS: Brain: No hemorrhage. Periventricular white matter lucency representing atherosclerotic encephalopathic. No mass effect. Cerebral ventricles: No ventriculomegaly. Prominence proportionate to the degree of atrophy observed. Paranasal sinuses: Visualized sinuses are unremarkable. No fluid levels. Mastoid air cells: Visualized mastoid air cells are well aerated. Bones/joints: Unremarkable. No acute fracture. Soft tissues: Unremarkable. CT/CT head wo con* [id number] IMPRESSION: No acute intracranial abnormality.
[2023-09-28 05:34] LABS: ABG PCO2 42.5 mmHg (35-45); ABG PH Result 7.45 (7.35-7.45); Arterial Blood Gas Hematocrit 35.4 % (42-52); Base Excess ABG 4.6 mmol/L (-2.0-2.0); Blood Gas Sample Site Brachial, right; Blood Gas Sample Type Arterial; Carboxyhemoglobin 0.7 %THgb (0.4-20.1); HCO3 ABG 29.2 mmol/L (22-26); HGB O2 Sat 97.8 % (95-100); Methemoglobin 0.4 % (0.4-1.5); Oxygen Device NRB; PO2 FiO2 Ratio Arterial Blood 0; Total Hemoglobin 11.5 g/dL (14-18)
--- NOTE | 2023-09-28 05:43 | W.ED.GENADLT ---
Documented by User: Melanie Lopez MD 09/28/23 05:51 HPI - General Adult General: Chief complaint: Weakness Stated complaint: WEAKNESS Time Seen by Provider: 09/28/23 05:20 Source: EMS Mode of arrival: EMS Limitations: altered mental status History of Present Illness: 78-year-old male who has a history of lung cancer with spread to his lymph nodes. History is from EMS no history available from patient at this time he is awake he did tell me his name but is confused here. They do not believe that he is on any type of treatment at this time patient does take hydrocodone for pain at home per EMS and his are giving 2 doses at 330 he is been altered since then was found laying down. Did state that he was hypoxic they did have a nonrebreather was able to turn that off andhis pulse ox is been normal here. He stated his blood pressure was in the 80s with them here is 100/63. Review of Systems General: Reports: ROS unobtainable due to mental status PFS ED PFSH: Medical History BPH (benign prostatic hyperplasia) COPD (chronic obstructive pulmonary disease) Hypertension Hypothyroidism (acquired) Nicotine dependence Sleep apnea Supplemental oxygen dependent Surgical History H/O thyroidectomy History of tonsillectomy Family History Grandmother Cancer Mother Cancer Breast cancer Social History Smoking and tobacco/nicotine status: current every day tobacco/nicotine user cigarettes Years cigarettes smoked: 40 [ Other cigarette details: 1 pack/day] Alcohol intake: never Substance/Drug Use: never Household members: spouse Housing: House Marital status: Physical Exam Const: COMMON NORMALS: negative for patient oriented x3 GENERAL APPEARANCE: disheveled HENMT: COMMON NORMALS: normocephalic and atraumatic HEAD & SCALP: normocephalic and atraumatic Eye: COMMON NORMALS: Equal, round and reactive pupils present and EOMs intact bilaterally PUPIL: Yes Equal, round and reactive pupils present Neck/C-Spine: COMMON NORMALS: full ROM OTHER: mass noted to left neck Chest: COMMONS NORMALS: normal inspection of the chest and normal palpation of entire chest wall Resp: COMMON NORMALS: No retractions and No use of accessory muscles AUSCULTATION: rales on the left in the lower lung sierra Cardio: COMMON NORMALS: regular rate, regular rhythm and No murmurs present (Cardio) RATE: regular rate RHYTHM: regular rhythm GI: COMMON NORMALS: Normal to inspection, nondistended, normoactive bowel sounds present, Soft to palpation, non-tender and no masses PALPATION: Yes Soft to palpation Extremity: COMMON NORMALS: normal to inspection and full ROM Neuro: COMMON NORMALS: moves all extremities and no focal motor deficits; negative for patient oriented x3 Psych: COMMON NORMALS: cooperative; negative for mental status grossly normal Skin: COMMON NORMALS: no rashes or lesions noted and no wounds GENERAL SKIN EXAM: no rashes or lesions noted Course Vital Signs: Vital signs: Vital Signs Temperature 100.0 F H 09/28/23 05:17 Pulse Rate 70 09/28/23 07:22 Respiratory Rate 14 09/28/23 06:33 Blood Pressure 102/67 09/28/23 07:22 Pulse Oximetry 97 09/28/23 07:22 Oxygen Delivery Me thod Oxymask 09/28/23 07:22 Oxygen Flow Rate 6 09/28/23 06:33 [facility] - General Adult Lab Data 09/28/23 05:07 09/28/23 05:07 Radiology Impressions Chest X-Ray 09/28/23 05:21 IMPRESSION: Right lower lobe pneumonia. Head CT 09/28/23 05:21 IMPRESSION: No acute intracranial abnormality. Laboratory Results WBC 12.41 10^3/uL (3.29-11.43) H 09/28/23 05:07 RBC 3.44 10^6/uL (3.85-5.65) L 09/28/23 05:07 Hgb 12.00 g/dL (11.27-16.99) 09/28/23 05:07 Hct 34.7 % (37-53) L 09/28/23 05:07 MCV 100.9 fl (82-101) 09/28/23 05:07 MCH 34.9 pg (27-33) H 09/28/23 05:07 MCHC 34.6 g/dL (30-55) 09/28/23 05:07 RDW 14.6 % (12.1-15.1) 09/28/23 05:07 Plt Count 221 10^3/cmm (157-399) 09/28/23 05:07 MPV 9.9 fL (7.4-10.4) 09/28/23 05:07 Neut % (Auto) 83.3 % 09/28/23 05:07 Lymph % (Auto) 7.2 % 09/28/23 05:07 [place] % (Auto) 8.2 % 09/28/23 05:07 Eos % (Auto) 0.2 % 09/28/23 05:07 Baso % (Auto) 0.2 % 09/28/23 05:07 Neut # (Auto) 10.33 10^3/uL (1.8-7.7) H 09/28/23 05:07 Lymph # (Auto) 0.9 10^3/uL (0.8-4.8) 09/28/23 05:07 [place] # (Auto) 1.0 10^3/uL (0.2-0.9) H 09/28/23 05:07 Eos # (Auto) 0.0 10^3/uL (0.0-0.8) 09/28/23 05:07 Baso # (Auto) 0.0 10^3/uL (0.0-0.1) 09/28/23 05:07 Nucleated RBC % (auto) 0 % 09/28/23 05:07 Nucleated RBCs # 0.0 /100WBC 09/28/23 05:07 PT 14.20 SECONDS (12.1-14.9) 09/28/23 05:07 INR 1.06 (0.8-1.2) 09/28/23 05:07 Specimen Type Arterial 09/28/23 05:30 Sample Site Brachial, right 09/28/23 05:30 ABG pH 7.45 (7.35-7.45) 09/28/23 05:30 ABG pCO2 42.5 mmHg (35-45) 09/28/23 05:30 ABG pO2 187.0 mmHg (80.0-100.0) H 09/28/23 05:30 ABG PO2/FiO2 Ratio 0 09/28/23 05:30 ABG HCO3 29.2 mmol/L (22-26) H 09/28/23 05:30 ABG Base Excess 4.6 mmol/L (-2.0-2.0) H 09/28/23 05:30 Link Test N/a 09/28/23 05:30 Hematocrit 35.4 % (42-52) L 09/28/23 05:30 Hgb O2 Saturation 97.8 % (95-100) 09/28/23 05:30 Carboxyhemoglobin 0.7 %THgb (0.4-20.1) 09/28/23 05:30 Methemoglobin 0.4 % (0.4-1.5) 09/28/23 05:30 Total Hemoglobin 11.5 g/dL (14-18) L 09/28/23 05:30 O2 Delivery Device Nrb 09/28/23 05:30 O2 Liters/Min 10.0 % 09/28/23 05:30 FiO2 60.0 % 09/28/23 05:30 Afric[employer] Studies Professor ID [email or web address] 09/28/23 05:30 Sodium 137 mmol/L (136-145) 09/28/23 05:07 Potassium 3.8 mmol/L (3.5-5.1) 09/28/23 05:07 Chloride 98 mmol/L (98-107) 09/28/23 05:07 Carbon Dioxide 28 mmol/L (22-29) 09/28/23 05:07 Anion Gap 14.8 (5-19) 09/28/23 05:07 BUN 41 mg/dL (8-23) H 09/28/23 05:07 Creatinine 1.6 mg/dL (0.7-1.2) H 09/28/23 05:07 GFR Calculation Not Reportable 09/28/23 05:07 Glucose 102 mg/dL (65-115) 09/28/23 05:07 Calculated Osmolality 294 mOsm/kg (285-295) 09/28/23 05:07 Lactic Acid 1.8 mmol/L (0.5-2.2) 09/28/23 05:28 Calcium 9.3 mg/dL (8.5-10.5) 09/28/23 05:07 Total Bilirubin 0.6 mg/dL (0.15-1.2) 09/28/23 05:07 AST 26 U/L (0-40) 09/28/23 05:07 ALT 23 U/L (0-41) 09/28/23 05:07 Alkaline Phosphatase 106 U/L (40-130) 09/28/23 05:07 Total Protein 7.3 g/dL (6.6-8.7) 09/28/23 05:07 Albumin 3.5 g/dL (3.5-5.2) 09/28/23 05:07 Globulin 3.8 g/dL (1.3-4.6) 09/28/23 05:07 Influenza Type A Ag negative (Negative) 09/28/23 06:35 Influenza Type B Ag negative (Negative) 09/28/23 06:35 SARS-CoV-2 Ag (Rapid) Negative (Negative) 09/28/23 06:35 Discharge Plan Discharge Patient Disposition: Admitted As Inpatient Admit Provider: Sabina Leums Clinical Impression: Community acquired pneumonia, Hypoxemia Condition: Stable Coding Level of Care Code ED Early Learning Teacher for Chg Fwd Documented by User: Talha Espitia MD 09/28/23 08:43 HPI - General Adult General: Chief complaint: Weakness Stated complaint: WEAKNESS Time Seen by Provider: 09/28/23 05:20 PFSH ED PFSH: Medical History BPH (benign prostatic hyperplasia) COPD (chronic obstructive pulmonary disease) Hypertension Hypothyroidism (acquired) Nicotine dependence Sleep apnea Supplemental oxygen dependent Surgical History H/O thyroidectomy History of tonsillectomy Family History Grandmother Cancer Mother Cancer Breast cancer Social History Smoking and tobacco/nicotine status: current every day tobacco/nicotine user cigarettes Years cigarettes smoked: 40 [ Other cigarette details: 1 pack/day] Alcohol intake: never Substance/Drug Use: never Household members: spouse Housing: House Marital status: Course Vital Signs: Vital signs: Vital Signs Temperature 100.0 F H 09/28/23 05:17 Pulse Rate 70 09/28/23 07:22 Respiratory Rate 14 09/28/23 06:33 Blood Pressure 102/67 09/28/23 07:22 Pulse Oximetry 97 09/28/23 07:22 Oxygen Delivery Me thod Oxymask 09/28/23 07:22 Oxygen Flow Rate 6 09/28/23 06:33 MDM - General Adult Medical Decision Making Physical exam completed and documented we will review the chest x-ray CBC CMP provide IV antibiotics as a suspect most likely the patient's differential diagnosis includes postobstructive pneumonia versus pneumonia versus influenza. Differential Diagnosis Influenza, pneumonia, Medical Records I reviewed the patient's medical records. Lab Data I reviewed the patient's lab results. 09/28/23 05:07 09/28/23 05:07 Radiology Impressions Chest X-Ray 09/28/23 05:21 IMPRESSION: Right lower lobe pneumonia. Head CT 09/28/23 05:21 IMPRESSION: No acute intracranial abnormality. Laboratory Results WBC 12.41 10^3/uL (3.29-11.43) H 09/28/23 05:07 RBC 3.44 10^6/uL (3.85-5.65) L 09/28/23 05:07 Hgb 12.00 g/dL (11.27-16.99) 09/28/23 05:07 Hct 34.7 % (37-53) L 09/28/23 05:07 MCV 100.9 fl (82-101) 09/28/23 05:07 MCH 34.9 pg (27-33) H 09/28/23 05:07 MCHC 34.6 g/dL (30-55) 09/28/23 05:07 RDW 14.6 % (12.1-15.1) 09/28/23 05:07 Plt Count 221 10^3/cmm (157-399) 09/28/23 05:07 MPV 9.9 fL (7.4-10.4) 09/28/23 05:07 Neut % (Auto) 83.3 % 09/28/23 05:07 Lymph % (Auto) 7.2 % 09/28/23 05:07 [place] % (Auto) 8.2 % 09/28/23 05:07 Eos % (Auto) 0.2 % 09/28/23 05:07 Baso % (Auto) 0.2 % 09/28/23 05:07 Neut # (Auto) 10.33 10^3/uL (1.8-7.7) H 09/28/23 05:07 Lymph # (Auto) 0.9 10^3/uL (0.8-4.8) 09/28/23 05:07 [place] # (Auto) 1.0 10^3/uL (0.2-0.9) H 09/28/23 05:07 Eos # (Auto) 0.0 10^3/uL (0.0-0.8) 09/28/23 05:07 Baso # (Auto) 0.0 10^3/uL (0.0-0.1) 09/28/23 05:07 Nucleated RBC % (auto) 0 % 09/28/23 05:07 Nucleated RBCs # 0.0 /100WBC 09/28/23 05:07 PT 14.20 SECONDS (12.1-14.9) 09/28/23 05:07 INR 1.06 (0.8-1.2) 09/28/23 05:07 Specimen Type Arterial 09/28/23 05:30 Sample Site Brachial, right 09/28/23 05:30 ABG pH 7.45 (7.35-7.45) 09/28/23 05:30 ABG pCO2 42.5 mmHg (35-45) 09/28/23 05:30 ABG pO2 187.0 mmHg (80.0-100.0) H 09/28/23 05:30 ABG PO2/FiO2 Ratio 0 09/28/23 05:30 ABG HCO3 29.2 mmol/L (22-26) H 09/28/23 05:30 ABG Base Excess 4.6 mmol/L (-2.0-2.0) H 09/28/23 05:30 Link Test N/a 09/28/23 05:30 Hematocrit 35.4 % (42-52) L 09/28/23 05:30 Hgb O2 Saturation 97.8 % (95-100) 09/28/23 05:30 Carboxyhemoglobin 0.7 %THgb (0.4-20.1) 09/28/23 05:30 Methemoglobin 0.4 % (0.4-1.5) 09/28/23 05:30 Total Hemoglobin 11.5 g/dL (14-18) L 09/28/23 05:30 O2 Delivery Device Nrb 09/28/23 05:30 O2 Liters/Min 10.0 % 09/28/23 05:30 FiO2 60.0 % 09/28/23 05:30 Africana Studies Professor ID [email or web address] 09/28/23 05:30 Sodium 137 mmol/L (136-145) 09/28/23 05:07 Potassium 3.8 mmol/L (3.5-5.1) 09/28/23 05:07 Chloride 98 mmol/L (98-107) 09/28/23 05:07 Carbon Dioxide 28 mmol/L (22-29) 09/28/23 05:07 Anion Gap 14.8 (5-19) 09/28/23 05:07 BUN 41 mg/dL (8-23) H 09/28/23 05:07 Creatinine 1.6 mg/dL (0.7-1.2) H 09/28/23 05:07 GFR Calculation Not Reportable 09/28/23 05:07 Glucose 102 mg/dL (65-115) 09/28/23 05:07 Calculated Osmolality 294 mOsm/kg (285-295) 09/28/23 05:07 Lactic Acid 1.8 mmol/L (0.5-2.2) 09/28/23 05:28 Calcium 9.3 mg/dL (8.5-10.5) 09/28/23 05:07 Total Bilirubin 0.6 mg/dL (0.15-1.2) 09/28/23 05:07 AST 26 U/L (0-40) 09/28/23 05:07 ALT 23 U/L (0-41) 09/28/23 05:07 Alkaline Phosphatase 106 U/L (40-130) 09/28/23 05:07 Total Protein 7.3 g/dL (6.6-8.7) 09/28/23 05:07 Albumin 3.5 g/dL (3.5-5.2) 09/28/23 05:07 Globulin 3.8 g/dL (1.3-4.6) 09/28/23 05:07 Influenza Type A Ag negative (Negative) 09/28/23 06:35 Influenza Type B Ag negative (Negative) 09/28/23 06:35 SARS-CoV-2 Ag (Rapid) Negative (Negative) 09/28/23 06:35 All radiology interpretation(s) finalized by discharge Discharge Plan Discharge Patient Disposition: Admitted As Inpatient Admit Provider: Sabina Lemus Clinical Impression: Community acquired pneumonia, Hypoxemia Condition: Stable Coding Level of Care Code ED Early Learning Teacher for Juan Luis Rod
[2023-09-28] MEDS: sodium chloride 0.9% 1,000 ML 999 ML IV (05:45)
[2023-09-28 05:46] LABS: Basophils % 0.2 %; Eosinophils % 0.2 %; Hematocrit 34.7 % (37-53); Lymphocytes # 0.9 10^3/uL (0.8-4.8); Lymphocytes % 7.2 %; Mean Corpuscular HGB Conc 34.6 g/dL (30-55); Mean Corpuscular Hemoglobin 34.9 pg (27-33); Mean Corpuscular Volume 100.9 fl (82-101); Mean Platelet Volume 9.9 fL (7.4-10.4); Monocytes % 8.2 %; Neutrophils # 10.33 10^3/uL (1.8-7.7); Neutrophils % 83.3 %; Nucleated Red Blood Cells % 0 %; Platelet Count 221 10^3/cmm (157-399); Red Blood Count 3.44 10^6/uL (3.85-5.65); Red Cell Distribution Width 14.6 % (12.1-15.1); White Blood Count 12.41 10^3/uL (3.29-11.43)
[2023-09-28 06:00] LABS: INR 1.06 (0.8-1.2)
[2023-09-28 06:07] LABS: Lactic Sepsis W/Reflex 1.8 mmol/L (0.5-2.2)
[2023-09-28 06:08] LABS: Alanine Aminotransferase 23 U/L (0-41); Albumin Level 3.5 g/dL (3.5-5.2); Alkaline Phosphatase 106 U/L (40-130); Anion Gap 14.8 (5-19); Aspartate Amino Transferase 26 U/L (0-40); Blood Urea Nitrogen 41 mg/dL (8-23); Calcium 9.3 mg/dL (8.5-10.5); Carbon Dioxide 28 mmol/L (22-29); Chloride 98 mmol/L (98-107); Globulin 3.8 g/dL (1.3-4.6); Glucose 102 mg/dL (65-115); Osmolality Calculated 294 mOsm/kg (285-295); Potassium 3.8 mmol/L (3.5-5.1); Sodium 137 mmol/L (136-145); Total Bilirubin 0.6 mg/dL (0.15-1.2); Total Protein 7.3 g/dL (6.6-8.7)
[2023-09-28] MEDS: azithromycin 500 MG in sodium chloride 0.9% 250 ML 250 MG IV (06:24)
[2023-09-28] MEDS: acetaminophen 500 mg Tablet 1000 MG PO (06:26)
[2023-09-28] MEDS: cefTRIAXone 1,000 MG in sodium chloride 0.9% (plus) 50 ML 100 MG IV (06:29)
[2023-09-28 07:06] LABS: Influenza A by IFA negative (Negative); Influenza B by IFA negative (Negative)
[2023-09-28 07:28] LABS: SARS Covid-2 Antigen Negative (Negative)
--- NOTE | 2023-09-28 08:40 | P.HP_ITS ---
Providers/Chief Complaint Admitting Physician: Sabina Lemus MD Primary Care Provider: Luan Cohen Chief Complaint: WEAKNESS History of Present Illness Mason Castaneda is a 78 year old male With past medical history of lung cancer involving lymph nodes, COPD chronically on 3 L nasal cannula, pulmonary embolism previously on Eliquis, status post thyroidectomy, smoking, pneumonia presented to the hospital today for shortness of breath. EMS was called as patient was found altered and laying down. Patient does take hydrocodone at home for pain and had 2 doses at 3:30 in the morning. He was hypoxic at home and was on a nonrebreather breather. They reported that the blood pressure at home was 80 systolic and on arrival to ER it was 100. History obtained from ER chart, ER physician. Patient is confused. Poor historian unable to provide any information at this time. Patient's kids were there. Spoke to his son and daughter. They tell me he has metastatic cancer to the lungs and to the bones and recently had a PET scan done in [place] on August 29. was able to pull up the PET scan on the portal. Has extensive left facial tumor involvement involving soft tissues with possible left soft palate involvement as well. Multiple bilateral pulmonary metastasis. Left shoulder pectoralis muscle tumor involvement. Patient states they they were recommended to have biopsy done and subsequently possibly chemotherapy however she states that they have decided against that at this time. Patient's son stated that they are worried chemo might kill him . Patient is very hard of hearing. He is confused at this time unable to give me a review of systems. Is on 6 L nasal cannula saturating 92%. Patient's states that he is a full code for now. She repeatedly asked the patient regarding his wishes however patient would not answer that question. Sh rosemarie stated that she will discuss with her family and let us know. ER course: 102/67, respirate 14, pulse 70, temperature 100.0 on 6 L oxy mask. WBC 12.4, creatinine 1.6 COVID-negative, flu swab has been obtained. Gas showed 7.45/42.5/47. Lactic acid 1.8. Chest x-ray shows right lower lobe pneumonia. Medications/Allergies Home Medications Medication Instructions Recorded Confirmed Last Taken Type albuterol sulfate 90 mcg/actuation 2 puff inhalation QID PRN 07/20/20 09/28/23 12/04/21 History aerosol inhaler Shortness Of Breath chlorpheniramine maleate 4 mg 4 mg PO QID PRN allergies 07/20/20 09/28/23 12/05/21 History tablet ipratropium 0.5 mg-albuterol 3 mg 3 ml inhalation Q4H PRN Shortness 07/20/20 09/28/23 12/04/21 History (2.5 mg base)/3 mL nebulization Of Breath soln metoprolol tartrate 100 mg tablet 100 mg PO BID 07/20/20 09/28/23 09/27/23 History lisinopril 40 mg tablet 20 mg PO DAILY 12/06/21 09/28/23 09/27/23 History simvastatin 40 mg tablet 20 mg PO QPM 12/06/21 09/28/23 09/27/23 History azithromycin 250 mg tablet See Rx Instructions .Route .COMPLEX 09/28/23 09/28/23 09/26/23 History budesonide 160 mcg-glycopyr 9 2 inh inhalation BID 09/28/23 09/28/23 09/27/23 History mcg-formot 4.8 mcg/actuation HFA inhaler ([employer]) buspirone 5 mg tablet 5 mg PO TID PRN Anxiety 09/28/23 09/28/23 09/27/23 History hydrocodone 5 mg-acetaminophen 325 1 - 2 tab PO Q6H PRN Pain 09/28/23 09/28/23 09/28/23 History mg tablet metoclopramide HCl 5 mg tablet 5 mg PO DAILY PRN Nausea 09/28/23 09/28/23 Unknown History (Reglan) ondansetron HCl 4 mg tablet 4 mg PO Q6H PRN Nausea 09/28/23 09/28/23 Unknown History Allergies Allergy/AdvReac Type Severity Reaction Status Date / Time No Known Allergies Allergy Verified 12/06/21 02:25 PFSH Acute PFSH: Medical History BPH (benign prostatic hyperplasia) COPD (chronic obstructive pulmonary disease) Hypertension Hypothyroidism (acquired) Nicotine dependence Sleep apnea Supplemental oxygen dependent Surgical History H/O thyroidectomy History of tonsillectomy Family History Grandmother Cancer Mother Cancer Breast cancer Social History Smoking and tobacco/nicotine status: current every day tobacco/nicotine user cigarettes Years cigarettes smoked: 40 [ Other cigarette details: 1 pack/day] Alcohol intake: never Substance/Drug Use: never Household members: spouse Housing: House Marital status: Vitals/I&O/Wt Last Vital Signs Temp 100.0 F H 09/28/23 05:17 Pulse 70 09/28/23 07:22 Resp 14 09/28/23 06:33 BP 102/67 09/28/23 07:22 Pulse Ox 97 09/28/23 07:22 O2 Del Method Oxymask 09/28/23 07:22 O2 Flow Rate 6 09/28/23 06:33 Weight last 48 hrs Weight 83.915 kg Physical Exam Narrative: No apparent acute distress, sitting up in bed saturating 92% on room air. HEENT: Normocephalic, atraumatic, EOMI, breathing comfortably, large bandage covering left side of face on mandible. Did not take bandage off however patient's showed me pictures of necrotic mass. Droopy left eye noted. Cardio: Regular rate rhythm, normal S1-S2, Respiratory: Diffuse rhonchi throughout lung sierra, GI: Abdomen soft, nontender, bowel sounds + Behavior: Appropriate and cooperative Extremities: Trace edema bilateral lower extremities Data 09/28/23 05:07 09/28/23 05:07 Micro: Microbiology 09/28/23 05:35 Blood Culture - Preliminary Blood SPECIMEN COLLECTED 09/28/23 05:35 Blood Culture - Preliminary Blood SPECIMEN COLLECTED A&P Assessment and plan (1) Hypoxemia: (2) Troponin level elevated: (3) Smoking addiction: (4) Chronic hypoxemic respiratory failure: (5) Shortness of breath: (6) COPD (chronic obstructive pulmonary disease): (7) Pneumonia: Plan #Right lower lobe pneumonia #Metabolic encephalopathy possibly secondary to above #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 #Acute on chronic hypoxic respiratory failure chronically on 2 L oxygen at home #History of pulmonary embolism #Nicotine dependence #Hypertension #Anxiety - Placed on ceftriaxone, azithromycin ? Check bacterial antigen Legionella, Streptococcus ? Check blood culture, sputum culture Gram stain ? Check MRSA ? Check urine culture ? Tylenol for fever every 6 hours as needed ? Check BNP. ? Check procalcitonin ? Check D-dimer. It may be elevated secondary to cancer and old age. Creatinine 1.6. I would not give contrast at this time. Discussed with , she agrees -DuoNeb every 6 hours as needed ? Solu-Medrol 40 IV twice daily ? Continue buspirone 5 3 times daily ? Hold home lisinopril at this time ? Hold Lopressor 100 twice daily ? Check CBC, CMP, magnesium in a.m. -There is disagreement amongst the family. Patient's son and daughter were at bedside who stated that they wanted to pursue hospice however stated that their mom was not ready yet. I did discuss with patient's regarding goals of care. She understands that he has terminal and if they are not going to pursue any further treatment hospice might be the most appropriate option at this time. Patient's states that there is a hospice palliative doctor in [place] that he would like to see. I did offer to have Dr. Herman see the patient however she said that she was not ready yet. We discussed we will continue antibiotics for now. I did tell the patient's that this is most likely progression of metastases at this point. She states that patient's daughters wanted him to come to the hospital. At the end it was decided until a family has a discussion with each other we will keep patient full code. I did explain to her that if patient is intubated for what ever reason we probably will not be able to extubate him. She demonstrates understanding. 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 She also stated that he used to be on Eliquis in the past but it was discontinued due to his surgeries and the lesions bleeding. At this time she would like to hold off on anticoagulation but is okay with DVT prophylaxis dose. -Check CT chest without contrast. Last PET scan was August 29. Full Code Due to prophylaxis: Heparin SQ twice daily Will need to request records from [facility] in AM. Attestations Medical Necessity Statement*: Will cross greater than 2 midnights for management of pneumonia. Diagnoses Hypoxemia R09.02 Troponin level elevated R77.8 Smoking addiction F17.200 Chronic hypoxemic respiratory failure J96.11 Shortness of breath R06.02 COPD (chronic obstructive pulmonary disease) J44.9 Pneumonia J18.9
[2023-09-28 09:14] LABS: D Dimer 2.12 ug/mLFEU (0-0.59)
[2023-09-28 09:30] LABS: NT Pro B Type Natriuretic Pept 609 pg/mL (0-450); Procalcitonin 0.28 ng/mL (0-0.5)
[2023-09-28] MEDS: heparin 5,000 unit/mL INJ 1 mL 5000 UNIT SUBCUT ×2 (10:45→20:31)
[2023-09-28] MEDS: methylPREDNISolone sod succ 40 mg/mL INJ IVP ×2 (10:46→22:01)
[2023-09-28] MEDS: ipratropium-albuterol 3 mL Neb INHALATION ×4 (10:55→23:36)
--- NOTE | 2023-09-28 11:27 | PC.NURSE ---
from er oriented pt and family to staff and room. at bedside, rt in room for breathing treatment. settled pt in a new fresh gown.
[2023-09-28] MEDS: ondansetron 2 mg/ML SDV 2 mL 4 MG IVP (11:33)
--- NOTE | 2023-09-28 17:18 | CTR_ITS ---
PROCEDURE INFORMATION: Exam: CT Chest Without Contrast; Diagnostic Exam date and time: 09/28/2023 7:22 PM Age: 78 years old Clinical indication: Shortness of breath; Prior surgery; Surgery date: 6+ months; Surgery type: Thyroidectomy; Patient HX: SOB with hypoxia. History of metastatic lung cancer. TECHNIQUE: Imaging protocol: Diagnostic computed tomography of the chest without contrast. Radiation optimization: All CT scans at this facility use at least one of these dose optimization techniques: automated exposure control; mA and/or kV adjustment per patient size (includes targeted exams where dose is matched to clinical indication); or iterative reconstruction. REPORTING DATA: Count of CT and Cardiac NM exams in prior 12 months: This patient has received 0 known CTs and 0 known cardiac nuclear medicine studies in the 12 months prior to the current study. COMPARISON: CT angio chest PE protcl [id number] 12/04/2021 8:51 PM RADIATION DOSE METRICS: Total DLP (mGy-cm): 412.47 FINDINGS: Lungs: Irregular consolidations in the posterior aspect of the right upper lobe, right middle lobe, right lower lobe and anterior aspect of the left lower lobe and posterior aspect of the left upper lobe. Pleural spaces: Unremarkable. No pneumothorax. No pleural effusion. Heart: Unremarkable. No cardiomegaly. No pericardial effusion. Coronary arteries: Coronary arterial atherosclerotic calcifications are present. Lymph nodes: Unremarkable. No enlarged lymph nodes. Vasculature: Unremarkable. No aortic aneurysm. Bones/joints: Unremarkable. No acute fracture. Soft tissues: Unremarkable. CT/CT chest [facility] [id number] IMPRESSION: Irregular consolidations in the posterior aspect of the right upper lobe, right middle lobe, right lower lobe and anterior aspect of the left lower lobe and posterior aspect of the left upper lobe. Findings are nonspecific but can be seen in the setting multifocal multi lobar pneumonia. Superimposed neoplasm can not be entirely excluded on this examination. Consider follow-up chest CT after treatment of current illness.
[2023-09-28] MEDS: budesonide 0.5 mg/2 mL Neb INHALATION (20:12)
[2023-09-29] VITALS (9 sets, daily range): BP systolic 96–128; BP diastolic 65–79; PULSE 65–79; RESP 16–29; TEMP 36.7–36.9; O2SAT 91–97
[2023-09-29 03:19] LABS: Basophils % 0.1 %; Hematocrit 29.5 % (37-53); Lymphocytes # 0.7 10^3/uL (0.8-4.8); Lymphocytes % 6.2 %; Mean Corpuscular HGB Conc 34.6 g/dL (30-55); Mean Corpuscular Hemoglobin 34.2 pg (27-33); Mean Platelet Volume 9.8 fL (7.4-10.4); Monocytes # 0.2 10^3/uL (0.2-0.9); Monocytes % 1.4 %; Neutrophils # 9.57 10^3/uL (1.8-7.7); Neutrophils % 91.3 %; Nucleated Red Blood Cells % 0 %; Platelet Count 224 10^3/cmm (157-399); Red Blood Count 2.98 10^6/uL (3.85-5.65); Red Cell Distribution Width 14.6 % (12.1-15.1); White Blood Count 10.48 10^3/uL (3.29-11.43)
[2023-09-29 03:40] LABS: Alanine Aminotransferase 35 U/L (0-41); Albumin Level 2.9 g/dL (3.5-5.2); Alkaline Phosphatase 104 U/L (40-130); Anion Gap 13.7 (5-19); Aspartate Amino Transferase 46 U/L (0-40); Blood Urea Nitrogen 37 mg/dL (8-23); Calcium 8.6 mg/dL (8.5-10.5); Carbon Dioxide 26 mmol/L (22-29); Chloride 99 mmol/L (98-107); Globulin 3.5 g/dL (1.3-4.6); Glucose 127 mg/dL (65-115); Magnesium 2.4 mg/dL (1.7-2.3); Osmolality Calculated 290 mOsm/kg (285-295); Potassium 3.7 mmol/L (3.5-5.1); Sodium 135 mmol/L (136-145); Total Bilirubin 0.4 mg/dL (0.15-1.2); Total Protein 6.4 g/dL (6.6-8.7)
[2023-09-29] MEDS: cefTRIAXone 1,000 MG in sodium chloride 0.9% (plus) 50 ML 100 MG IV (06:16)
[2023-09-29] MEDS: azithromycin 500 MG in sodium chloride 0.9% 250 ML 250 MG IV (06:49)
[2023-09-29] MEDS: ipratropium-albuterol 3 mL Neb INHALATION ×3 (07:47→15:45)
[2023-09-29] MEDS: budesonide 0.5 mg/2 mL Neb INHALATION (07:47)
[2023-09-29] MEDS: heparin 5,000 unit/mL INJ 1 mL 5000 UNIT SUBCUT (08:15)
[2023-09-29] MEDS: metoclopramide 10 mg Tablet 5 MG PO (10:13)
[2023-09-29] MEDS: methylPREDNISolone sod succ 40 mg/mL INJ IVP (10:13)
[2023-09-29] MEDS: HYDROcodone-acetaminophen 5-325 mg Tablet 2 TAB PO (10:14)
[2023-09-29] MEDS: ondansetron 2 mg/ML SDV 2 mL 4 MG IVP ×2 (13:33→17:19)
--- NOTE | 2023-09-29 15:40 | P.DS_ITS ---
Discharge Providers Date of Admission: 09/28/23 07:22 Date of Discharge: September 29, 2023 Attending Provider at Admission: Sabina Lemus MD Attending Provider at Discharge: Vivian Murphy MD Primary Care Provider: Luan Cohen Diagnoses at Discharge Discharge Diagnosis (1) Hypoxemia: Status: Acute (2) Troponin level elevated: Status: Acute (3) Smoking addiction: Status: Acute (4) Chronic hypoxemic respiratory failure: Status: Acute (5) Shortness of breath: Status: Acute (6) COPD (chronic obstructive pulmonary disease): Status: Acute (7) Pneumonia: Status: Acute Reason for Visit Reason for Visit: WEAKNESS Brief History: Mason Castaneda is a 78 year old male With past medical history of lung ca, COPD chronically on 3 L nasal cannula, pulmonary embolism not currently on Eliquis, 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 He is not a candidate for chemoradiation per family. He has been following with palliative care team at [place]. He was brought to the hospital via EMS when he was noted to be hypoxic at home and had alteration in mentation. Per son at bedside, patient has been exhibiting altered behavior over past few weeks such as being intermittenly confused and saying inappropriate things. Blood pressure at home was 80 systolic. Maintained since admission. Recent PET scan was reveiwed by admitting hospitalist- he has extensive left facial tumor involvement involving soft tissues with possible left soft palate involvement as well. Multiple bilateral pulmonary metastasis. Left shoulder pectoralis muscle tumor involvement.? In the ER he was febrile 100F. CT chest showed B/L infiltrates which may be customer field representative of pneumonia, perhaps aspiration given palate involvement vs known infiltrates. He was treated with iv abx, iv hydration, steroids and nebulization. He improved back to his baseline chronically ill but stable state. Goals of care were discussed with family. There is ongoing discussion between patient's and children. Family is well aware of his advanced malignancy and poor prognosis associated with it. They understand the risk of recurrent aspirations and pneumonia. Understand the high risk of mortality. They would like the patient to be discharged back to home today and continue discussions in their home. Likely consideration for transition to hospice. Overall patient is back to his seriously ill but stable baseline. Keeping patient in the hospital for a longer duration unlikely to add to any meaningful fci recovery or alter his disease process in any way. It is reasonable therefore to discharge him home today under care of his family members. He will continue antibiotics, steroids and s/l atropine at home to help with secretions. Physical Exam Narrative: General: No acute distress, AO x2 HEENT: PERRLA, left facial swelling, drooping left eyelid. Chronically ill, frail appearing man Discharge Data Studies Completed and Pending Completed Studies During Hospitalization Category Date Time Status CT chest wo con [id number] Urgent Cat Scan 09/28/23 17:[address] head wo con* [id number] Stat Cat Scan 09/28/23 05:21 Completed XR chest 1V portable [id number] Stat Exams 09/28/23 05:21 Completed Pending at discharge Category Date Time Status Blood Culture Stat Lab 09/28/23 05:35 Results Sputum Culture and Gram Stain Stat Lab 09/29/23 13:48 Received Radiology Impressions Chest X-Ray 09/28/23 05:21 IMPRESSION: Right lower lobe pneumonia. Head CT 09/28/23 05:21 IMPRESSION: No acute intracranial abnormality. Chest CT 09/28/23 17:18 IMPRESSION: Irregular consolidations in the posterior aspect of the right upper lobe, right middle lobe, right lower lobe and anterior aspect of the left lower lobe and posterior aspect of the left upper lobe. Findings are nonspecific but can be seen in the setting multifocal multi lobar pneumonia. Superimposed neoplasm can not be entirely excluded on this examination. Consider follow-up chest CT after treatment of current illness. Laboratory Results WBC 10.48 10^3/uL (3.29-11.43) 09/29/23 02:31 RBC 2.98 10^6/uL (3.85-5.65) L 09/29/23 02:31 Hgb 10.20 g/dL (11.27-16.99) L 09/29/23 02:31 Hct 29.5 % (37-53) L 09/29/23 02:31 MCV 99.0 fl (82-101) 09/29/23 02:31 MCH 34.2 pg (27-33) H 09/29/23 02:31 MCHC 34.6 g/dL (30-55) 09/29/23 02:31 RDW 14.6 % (12.1-15.1) 09/29/23 02:31 Plt Count 224 10^3/cmm (157-399) 09/29/23 02:31 MPV 9.8 fL (7.4-10.4) 09/29/23 02:31 Neut % (Auto) 91.3 % 09/29/23 02:31 Lymph % (Auto) 6.2 % 09/29/23 02:31 [place] % (Auto) 1.4 % 09/29/23 02:31 Eos % (Auto) 0.0 % 09/29/23 02:31 Baso % (Auto) 0.1 % 09/29/23 02:31 Neut # (Auto) 9.57 10^3/uL (1.8-7.7) H 09/29/23 02:31 Lymph # (Auto) 0.7 10^3/uL (0.8-4.8) L 09/29/23 02:31 [place] # (Auto) 0.2 10^3/uL (0.2-0.9) 09/29/23 02:31 Eos # (Auto) 0.0 10^3/uL (0.0-0.8) 09/29/23 02:31 Baso # (Auto) 0.0 10^3/uL (0.0-0.1) 09/29/23 02:31 Nucleated RBC % (auto) 0 % 09/29/23 02:31 Nucleated RBCs # 0.0 /100WBC 09/29/23 02:31 PT 14.20 SECONDS (12.1-14.9) 09/28/23 05:07 INR 1.06 (0.8-1.2) 09/28/23 05:07 D-Dimer 2.12 ug/mLFEU (0-0.59) H 09/28/23 05:07 Specimen Type Arterial 09/28/23 05:30 Sample Site Brachial, right 09/28/23 05:30 ABG pH 7.45 (7.35-7.45) 09/28/23 05:30 ABG pCO2 42.5 mmHg (35-45) 09/28/23 05:30 ABG pO2 187.0 mmHg (80.0-100.0) H 09/28/23 05:30 ABG PO2/FiO2 Ratio 0 09/28/23 05:30 ABG HCO3 29.2 mmol/L (22-26) H 09/28/23 05:30 ABG Base Excess 4.6 mmol/L (-2.0-2.0) H 09/28/23 05:30 Link Test N/a 09/28/23 05:30 Hematocrit 35.4 % (42-52) L 09/28/23 05:30 Hgb O2 Saturation 97.8 % (95-100) 09/28/23 05:30 Carboxyhemoglobin 0.7 %THgb (0.4-20.1) 09/28/23 05:30 Methemoglobin 0.4 % (0.4-1.5) 09/28/23 05:30 Total Hemoglobin 11.5 g/dL (14-18) L 09/28/23 05:30 O2 Delivery Device Nrb 09/28/23 05:30 O2 Liters/Min 10.0 % 09/28/23 05:30 FiO2 60.0 % 09/28/23 05:30 Rotary Shear Cutter ID [email or web address] 09/28/23 05:30 Sodium 135 mmol/L (136-145) L 09/29/23 02:31 Potassium 3.7 mmol/L (3.5-5.1) 09/29/23 02:31 Chloride 99 mmol/L (98-107) 09/29/23 02:31 Carbon Dioxide 26 mmol/L (22-29) 09/29/23 02:31 Anion Gap 13.7 (5-19) 09/29/23 02:31 BUN 37 mg/dL (8-23) H 09/29/23 02:31 Creatinine 1.0 mg/dL (0.7-1.2) 09/29/23 02:31 GFR Calculation Not Reportable 09/29/23 02:31 Glucose 127 mg/dL (65-115) H 09/29/23 02:31 Calculated Osmolality 290 mOsm/kg (285-295) 09/29/23 02:31 Lactic Acid 1.8 mmol/L (0.5-2.2) 09/28/23 05:28 Calcium 8.6 mg/dL (8.5-10.5) 09/29/23 02:31 Magnesium 2.4 mg/dL (1.7-2.3) H 09/29/23 02:31 Total Bilirubin 0.4 mg/dL (0.15-1.2) 09/29/23 02:31 AST 46 U/L (0-40) H 09/29/23 02:31 ALT 35 U/L (0-41) 09/29/23 02:31 Alkaline Phosphatase 104 U/L (40-130) 09/29/23 02:31 NT-Pro-B Natriuret Pep 609 pg/mL (0-450) H 09/28/23 05:07 Total Protein 6.4 g/dL (6.6-8.7) L 09/29/23 02:31 Albumin 2.9 g/dL (3.5-5.2) L 09/29/23 02:31 Globulin 3.5 g/dL (1.3-4.6) 09/29/23 02:31 Procalcitonin 0.28 ng/mL (0-0.5) 09/28/23 05:07 Influenza Type A Ag negative (Negative) 09/28/23 06:35 Influenza Type B Ag negative (Negative) 09/28/23 06:35 SARS-CoV-2 Ag (Rapid) Negative (Negative) 09/28/23 06:35 Vitals Last Vital Signs Temp 98.4 F 09/29/23 07:34 Pulse 73 09/29/23 12:00 Resp 29 H 09/29/23 12:00 BP 122/65 09/29/23 12:00 Pulse Ox 96 09/29/23 12:00 O2 Del Method Nasal Cannula 09/29/23 11:32 O2 Flow Rate 4 09/29/23 11:32 Discharge Plan Discharge Patient Disposition: Home Condition: Serious Prescriptions: New prednisone 20 mg tablet 40 mg PO DAILY 10 Days Qty: 20 0RF Protonix 40 mg tablet,delayed release (DR/EC) 40 mg PO DAILY 14 Days Qty: 14 0RF amoxicillin-pot clavulanate 875-125 mg tablet 1 tab PO BID 7 Days Qty: 14 0RF atropine 1 % Drops 2 drp sublingual Q4H PRN (Reason: Secretions) 7 Days Qty: 20 0RF Continued lisinopril 40 mg Tablet 20 mg PO DAILY Hold Instructions: Resume on 12/08/21. simvastatin 40 mg Tablet 20 mg PO QPM chlorpheniramine maleate 4 mg Tablet 4 mg PO QID PRN (Reason: allergies) Rx Instructions: MEDICATION ON VA LIST ipratropium-albuterol 0.5 mg-3 mg(2.5 mg base)/3 mL Solution For Nebulization 3 ml INHALATION Q4H PRN (Reason: Shortness Of Breath) metoprolol tartrate 100 mg Tablet 100 mg PO BID albuterol sulfate 90 mcg/actuation Hfa Aerosol Inhaler 2 puff INHALATION QID PRN (Reason: Shortness Of Breath) Rx Instructions: MEDICATION ON [place] MED LIST azithromycin 250 mg tablet See Rx Instructions .ROUTE .COMPLEX Patient Comments: M,W,F Rx Instructions: 500 mg orally every other day on Mon, Wed, and Fri buspirone 5 mg tablet 5 mg PO TID PRN (Reason: Anxiety) hydrocodone-acetaminophen 5-325 mg Tablet 1 - 2 tab PO Q6H PRN (Reason: Pain) ondansetron HCl 4 mg Tablet 4 mg PO Q6H PRN (Reason: Nausea) Reglan 5 mg Tablet 5 mg PO DAILY PRN (Reason: Nausea) Breztri Aerosphere 160-9-4.8 mcg/actuation Hfa Aerosol Inhaler 2 inh INHALATION BID Discharge Orders: Discharge Order (Routine); Ordered 09/29/23 Ordered By: Vivian Murphy Referrals: Luan Cohen [Primary Care Provider] - (We have notified your physician's clinic of the need for a follow-up appointment to be scheduled. If you have not heard from them within the next 2 business days, please call them directly. ) Discharge Diet: Advance as tolerated Discharge Activity: Resume usual activity Patient Instructions: Prednisone (By mouth), Amoxicillin/Clavulanate Potassium (By mouth) (Augmentin, Augmentin..., Pantoprazole (By mouth) (Protonix), How to Stop Smoking (DC), Opioid Safety, Pneumonia Stoplight Discharge Attestations Time Spent in Discharge Care*: greater than 30 min Status at Discharge: Cognitive status at discharge: cognitively intact , Behavioral status at discharge: cooperative , Quality Metrics Clinical Quality Measures [ No reported AMI, CVA or VTE this stay] Coding Level of Care Code Acute Code for Chg Fwd Diagnoses Hypoxemia R09.02 Troponin level elevated R77.8 Smoking addiction F17.200 Chronic hypoxemic respiratory failure J96.11 Shortness of breath R06.02 COPD (chronic obstructive pulmonary disease) J44.9 Pneumonia J18.9
--- NOTE | 2023-09-29 15:40 | PM.HP ---
Providers/Chief Complaint Admitting Physician: Sabina Lemus MD Primary Care Provider: Luan Cohen Chief Complaint: WEAKNESS History of Present Illness Mason Castaneda is a 78 year old male Medications/Allergies Home Medications Medication Instructions Recorded Confirmed Last Taken Type albuterol sulfate 90 mcg/actuation 2 puff inhalation QID PRN 07/20/20 09/28/23 12/04/21 History aerosol inhaler Shortness Of Breath chlorpheniramine maleate 4 mg 4 mg PO QID PRN allergies 07/20/20 09/28/23 12/05/21 History tablet ipratropium 0.5 mg-albuterol 3 mg 3 ml inhalation Q4H PRN Shortness 07/20/20 09/28/23 12/04/21 History (2.5 mg base)/3 mL nebulization Of Breath soln metoprolol tartrate 100 mg tablet 100 mg PO BID 07/20/20 09/28/23 09/27/23 History lisinopril 40 mg tablet 20 mg PO DAILY 12/06/21 09/28/23 09/27/23 History simvastatin 40 mg tablet 20 mg PO QPM 12/06/21 09/28/23 09/27/23 History azithromycin 250 mg tablet See Rx Instructions .Route .COMPLEX 09/28/23 09/28/23 09/26/23 History budesonide 160 mcg-glycopyr 9 2 inh inhalation BID 09/28/23 09/28/23 09/27/23 History mcg-formot 4.8 mcg/actuation HFA inhaler (Breztri Aerosphere) buspirone 5 mg tablet 5 mg PO TID PRN Anxiety 09/28/23 09/28/23 09/27/23 History hydrocodone 5 mg-acetaminophen 325 1 - 2 tab PO Q6H PRN Pain 09/28/23 09/28/23 09/28/23 History mg tablet metoclopramide HCl 5 mg tablet 5 mg PO DAILY PRN Nausea 09/28/23 09/28/23 Unknown History (Reglan) ondansetron HCl 4 mg tablet 4 mg PO Q6H PRN Nausea 09/28/23 09/28/23 Unknown History Allergies Allergy/AdvReac Type Severity Reaction Status Date / Time No Known Allergies Allergy Verified 12/06/21 02:25 PFSH Acute PFSH: Medical History BPH (benign prostatic hyperplasia) COPD (chronic obstructive pulmonary disease) Hypertension Hypothyroidism (acquired) Nicotine dependence Sleep apnea Supplemental oxygen dependent Surgical History H/O thyroidectomy History of tonsillectomy Family History Grandmother Cancer Mother Cancer Breast cancer Social History Smoking and tobacco/nicotine status: current every day tobacco/nicotine user cigarettes Years cigarettes smoked: 40 [ Other cigarette details: 1 pack/day] Alcohol intake: never Substance/Drug Use: never Household members: spouse Housing: House Marital status: Vitals/I&O/Wt Last Vital Signs Temp 98.4 F 09/29/23 07:34 Pulse 73 09/29/23 12:00 Resp 29 H 09/29/23 12:00 BP 122/65 09/29/23 12:00 Pulse Ox 96 09/29/23 12:00 O2 Del Method Nasal Cannula 09/29/23 11:32 O2 Flow Rate 4 09/29/23 11:32 09/29/23 09/29/23 09/29/23 06:59 14:59 22:59 Intake Total 50 / 1468 610 / 610 Balance 50 / 1068 610 / 610 Weight last 48 hrs Weight 88.451 kg Weight 86.682 kg Weight 83.915 kg Data 09/29/23 02:31 09/29/23 02:31 Micro: Microbiology 09/29/23 08:30 Legionella Urinary Antigen - Final Urine,Voided 09/29/23 08:30 Bacterial Antigens - Final Urine,Voided 09/28/23 05:35 Blood Culture - Preliminary Blood NEGATIVE TO DATE 09/28/23 05:35 Blood Culture - Preliminary Blood NEGATIVE TO DATE Coding Level of Care Code Acute Code for Chg Fwd Diagnoses
--- NOTE | 2023-09-29 16:43 | PC.NURSE ---
pharmacy called for meds to bed
--- NOTE | 2023-09-29 17:39 | PC.NURSE ---
family is okay to let us send pt's atropine med to [facility] and they will pick it up tomorrow.
== END 2023-09-29 17:40 | disposition home or self-care (01) | DRG 193 ==
LOC: ER 06:49 → CSU 08:01
PROVIDERS: Emergency Medicine; Admitting Provider Internal Medicine; Emergency Provider Internal Medicine; PCP Family Medicine; Visit Provider Student in an Organized Health Care Education/Training Program
DX: J18.9 Pneumonia, unspecified organism (principal); G93.41 Metabolic encephalopathy; J96.10 Chronic respiratory failure, unspecified whether with hypoxia or hypercapnia; C78.02 Secondary malignant neoplasm of left lung; C78.01 Secondary malignant neoplasm of right lung; C79.51 Secondary malignant neoplasm of bone; N40.0 Benign prostatic hyperplasia without lower urinary tract symptoms; I10 Essential (primary) hypertension; E03.9 Hypothyroidism, unspecified; G47.30 Sleep apnea, unspecified; Z99.81 Dependence on supplemental oxygen; J44.9 Chronic obstructive pulmonary disease, unspecified; Z86.711 Personal history of pulmonary embolism; H91.90 Unspecified hearing loss, unspecified ear; Z20.822 Contact with and (suspected) exposure to COVID-19; F17.210 Nicotine dependence, cigarettes, uncomplicated; F41.9 Anxiety disorder, unspecified; R79.89 Other specified abnormal findings of blood chemistry; C07 Malignant neoplasm of parotid gland
CPT/HCPCS: 36415; 36600; 70450; 71045; 71250; 80053; 82805; 83605; 83735; 83880; 84145; 85025; 85378; 85610; 86403; 87040; 87070; 87205; 87426; 87449; 87804; 93005; 93010; 94640; 94664; 96365; 96367; 96372; 96376; 99285; J0456; J0696; J1644; J2405; J2920; J7030; J7050; J7626; J8597